=== PATIENT | male | born 1935 | race Caucasian/White ===

== ENCOUNTER 2020-05-11 19:12 | Inpatient (IN) ==
--- NOTE | 2020-05-11 19:31 | ERNOTE ---
Neuro HPI ER Record Date of Service: 05/11/20 Presenting Symptoms: weakness, difficulty standing Time Seen by Provider: 05/11/20 19:15 Source: patient Exam Limitations: no limitations Immunizations: IMMUNIZATION HX Immunizations Up to Date Yes History of Influenza Vaccine No Hx Pneumococcal Vaccination No Allergies/Adverse Reactions: Allergies Allergy/AdvReac Type Severity Reaction Status Date / Time No Known Allergies Allergy Verified 11/25/19 14:00 Home Medications: HOME MEDICATIONS atenolol 50 mg tablet 100 mg PO QHS #180 tab 08/22/19 [Last Taken Unknown] metformin 1,000 mg tablet,extended release 24hr 1,000 mg PO QHS #90 tab 09/03/19 [Last Taken Unknown] isosorbide mononitrate 60 mg tablet,extended release 24 hr 60 mg PO DAILY #90 tab 02/21/20 [Last Taken Unknown] lisinopril 20 mg tablet 20 mg PO QAM #90 tab 03/24/20 [Last Taken Unknown] Insulin Glargine,Hum.rec.anlog [Lantus U-100 Insulin] 50 units SQ QAM 05/11/20 [Last Taken Unknown] - Pain Score Pain Score #1 Pain Score: 0 - History of Present Illness Narrative: The patient is a 84 year old male who presents for right sided weakness which has been present since May 09 evening. There are associated symptoms of difficulty with swallowing. The patient denies pain. There are no alleviating factors. There are no aggravating factors. Previous treatments have included: none. The past medical history includes: anemia, colon ca, DM, HTN and PUD. The social history is positive for former smoker. The patient has had no known ill contacts. Patient reports he noticed weakness to right arm and leg which has progressed since onset. Patient states yesterday he noticed some difficulty with swallowing. Patient states he had similar issues in the past but they resolved on their own. Review of Systems - Review of Systems Constitutional: Present: no symptoms reported. Absent: recent illness, fever, fatigue EYE: Present: no symptoms reported ENT: Present: no symptoms reported. Absent: ear pain, nasal drainage, sore t hroat Respiratory: Present: no symptoms reported. Absent: shortness of breath, cough Cardiology: Present: no symptoms reported. Absent: chest pain Gastrointestinal/Abdominal: Present: no symptoms reported. Absent: nausea, vomiting, diarrhea Genitourinary: Present: no symptoms reported. Absent: dysuria Musculoskeletal: Present: no symptoms reported Skin: Present: no symptoms reported. Absent: rash Neurological: Present: weakness All Other Systems: All systems neg except as marked Medical History (Last Reviewed 05/11/20 @ 19:20 by GRACIELA Padilla) Peptic ulcer (Chronic) Onset Date: ~1979 Hypertension (Chronic) Onset Date: Unknown Diabetes (Chronic) Onset Date: Unknown Colon neoplasm (Chronic) Onset Date: ~12/14/11 history of-Malignant; Infiltrating adenocarcinoma T3 N1b colon carcinoma Anemia (Chronic) Onset Date: Unknown Surgical History: Surgical History (Last Reviewed 05/11/20 @ 19:20 by GRACIELA Padilla) H/O esophagogastroduodenoscopy (Resolved) Onset Date: ~12/14/11 With Biopsy; also 08/02/13. [place]- '12 CLOtest negative. '13 CLOtest negative H/O elbow surgery (Resolved) Onset Date: Unknown right H/O colonoscopy (Resolved) Onset Date: ~12/14/11 With Biopsy; Also 01/09/13 and 04/27/16. [place] - '12 tubular adenoma with conner grade sysplasia, infiltrating adenocarcinoma. '13 villous adenoma with low grade dysplasia. Recheck in 3 years. '16 hyperplasic polyp. Recheck 3 years. H/O colectomy (Resolved) Onset Date: ~01/18/12 bagan - sigmoid- adenocarcinoma of colon, moderately differentiated. 2 regional lymph nodes with metastatic adenocarcinoma out of 17 total Family History: Family History (Last Reviewed 05/11/20 @ 19:20 by GRACIELA Padilla) Father , age 63 Heart disease Mother , age 72 Diabetes Social History: (Last Reviewed 05/11/20 @ 19:20 by GRACIELA Padilla) Social History: adopted: No Marital status: household members: spouse Highest education level completed: high school graduate Service: Yes Tobacco: Smoking Status: Former smoker Alcohol: alcohol intake: current alcohol intake frequency: holiday/special occasion Dietary Habits: caffeine: Yes Physical Exam - Physical Exam General Appearance: Present: wd/wn, alert, moderate distress Head Exam: Present: normal inspection, no evidence of injury Eye Exam: Normal inspection: bilateral, PERRL: bilateral, EOMI: bilateral Ears, Nose, Throat: Present: other - left facial droop, mild deviation to tongue to left, mild droop to left eye Neck: Present: normal inspection Respiratory: Present: no respiratory distress, normal breath sounds, no accessory muscle use, lungs clear Cardiovascular/Chest: Present: regular rate, rhythm, no murmur Peripheral Pulses: N=norm/S=strong/W=weak/B=bound/A=absent: Radial (R): Normal Gastrointestinal/Abdominal: Present: normal bowel sounds, nontender, nondistended, soft, no organomegaly Neurological Exam: Present: alert, oriented, normal mood/affect, motor weakness - right arm and leg Laura Coma Scale - Assess Eye Opening: Spontaneous Motor: Obeys Commands Verbal: Oriented - Total Coma Scale Total: 15 Initial Stroke Assessment - NIH Stroke Scale Level of Consciousness: Alert LOC Questions (Year and Age): Answers neither correctly LOC Commands (open/close eyes/fist): Performs both correctly Lateral Gaze Paresis: None Visual Field Loss: No visual loss Facial Palsy: Minor paralysis Right Arm Motor (10 sec hold): Drift, effort made Left Arm Motor (10 sec hold): No drift Right Leg Motor (5 sec hold): No movement Left Leg Motor (5 sec hold): No drift Limb Ataxia (finger/nose heel/price): Present in 1 limb If present, ataxia in:: Right arm Sensory Loss (pinprick arms/legs/face): Mild, aware yet dulled Language Aphasia (description/naming/reading): No aphasia; normal Dysarthria (speech clarity): Slurring, intelligeble Neglect Inattention (visual/tactile/auditory/spatial/person): No neglect Initial Stroke Scale Score:: 12 Stroke Inclusion/Exclusion Cri - Inclusion Questions: Yes Onset of symptoms <3 1/2 hours of admission to ETC: No - B Exclusion (Must answwer No to meet): Time of onset greater then 3.5 hours. - Exclusion Questions: Major symptoms rapidly improving: No Seizure at onset of stroke: No SBP>185; DBP>110 at time treatment is to begin: No Patient received Heparin or Coumadin within 48 hours: No Patient has elevated PTT or Protime/INR: No Stroke, head injury, major surgery, serious trauma in 3 mon.: No Previous intracranial hemmorhage: No Recent DE: No Known AV malformation or aneurysm: No Blood glucose <50mg/dl or >400mg/dl: No NIHSS Score <4 or >22 performed by physician: No - Total NIHSS Score Score:: 12 Progress - Date and Time Seen: Date and Time: 05/11/20 19:28 Discussed with patient that I am concerned that he may have had a stroke but due to onset of symptoms that began yesterday he is outside of the treatment window. Will proceed with CT imaging and lab evaluation. Patient states that he noticed weakness to right side the evening of May 09 following the fireworks but then felt that symptoms significantly worsen yesterday. 05/11/20 20:17 Results of imaging and lab testing discussed with patient and at bedside. Discussed options with patient and regarding neurologic eval at [facility] versus hospital admission and MRI follow-up due to duration since onset of symptoms. After joint discussion patient decides to stay at hospital for admission with further evaluation with MRI testing as well as speech therapy evaluation and physical therapy eval. Case was discussed with Dr. Mar and will admit patient for acute admission CVA. Patient will be kept n.p.o. due to concern for aspiration until speech eval completed. - Results and Orders Patient's Lab Results:: I have reviewed the patient's lab results. - Vital Signs Patient's Vital Signs:: I have reviewed the patient's vital signs. - EKG EKG #1 EKG: NSR EKG read: Reviewed by me - X-Ray X-Ray #1 X-Ray: chest Interpretation: Reviewed by me X-ray Comments: IMPRESSION: No acute cardiopulmonary process. Electronically signed by Amelie Finney D.O.. - CT/Ultrasound CT/Ultrasound Narrative: Impression: No acute intracranial process. Cerebral volume loss. Chronic small vessel ischemic disease. If there is persistent concern, an MRI of the brain should be obtained. Electronically signed by Amelie Finney D.O.. - Progress/Reassessment Progress:: Unchanged Departure Clinical Impression: CVA (cerebral vascular accident) Qualifiers: CVA mechanism: unspecified Qualified Code(s): I63.9 - Cerebral infarction, unspecified - Departure Disposition: Still a patient Condition: Fair Referrals: Judi Carcamo MD [Primary Care Provider] -
[2020-05-11 19:37] LABS: Hematocrit 42.7 % (42.0-52.0); Hemoglobin 14.5 gm/dL (13.5-18.0); Mean Cell Volume 93.8 fl (78-100); Mean Corpuscular Hemoglobin 31.9 pg (27-31); Mean Platelet Volume 9.8 fl (8-11.3); Neutrophil # 5.6 K/mm3 (1.3-6.0); Neutrophil % 65.9 % (42-75.0); Platelet Count 181 K/mm3 (150-450); Red Blood Count 4.55 M/mm3 (4.7-6.0); Red Cell Distribution Width 12.5 % (11.5-14.0); White Blood Count 8.4 K/mm3 (4.0-10.5)
[2020-05-11 19:47] LABS: Prothrombin Time (Patient) 10.1 Seconds (9.1-10.7)
[2020-05-11 19:50] LABS: Albumin * 3.6 gm/dl (3.4-5.0); Anion Gap 11.8 mmol/L (6.8-13.8); BUN/Creatinine Ratio 19.6 (9.0-21.6); Bilirubin, Total 0.7 mg/dL (0.0-1.1); Ca. Corrected For Albumin 8.8 mg/dL (8.4-10.2); Calcium * 8.8 mg/dL (7.9-10.9); INR 1.02 INR (0.92-1.08); Partial Thrombolplastin Time 23.1 Seconds (24-32); Potassium 3.8 mmol/L (3.4-4.6); Total Protein 7.1 gm/dL (6.2-8.2)
[2020-05-11] MEDS: DEXTROSE 5%-0.5 NORMAL SALINE 1,000 ML IV PRN (21:05)
[2020-05-12 05:41] LABS: Urine Bilirubin Negative (NEGATIVE); Urine Ketone Negative (NEGATIVE); Urine Protein 30 mg/dL (NEGATIVE); Urine Specific Gravity 1.025 SP.GR. (1.005-1.030); Urine Urobilinogen Normal (NORMAL)
[2020-05-12 05:56] LABS: Urine Appearance Cloudy (CLEAR); Urine Blood 5 /ul (NEGATIVE); Urine Color Yellow; Urine Nitrite Positive (NEGATIVE)
[2020-05-12 05:57] LABS: Urine Bacteria 4+; Urine RBC TRACE /hpf (0-5); Urine WBC >50 /hpf (0-5)
[2020-05-12] MEDS: DEXTROSE 5%-0.5 NORMAL SALINE 1,000 ML IV PRN (07:54)
[2020-05-12] MEDS ORDERED: CIPROFLOXACIN IN 5 % DEXTROSE 400 MG/200 ML BAG IV SCH (09:00)
--- NOTE | 2020-05-12 09:00 | HP ---
Chief Complaint - Chief Complaint Date of Service: 05/12/20 Time of Service: 08:17 Chief Complaint: weakness History of Present Illness: Raúl Dumont is an 84-year-old white male with past medical history significant for hypertension, mild cognitive impairment, diabetes mellitus type 2, history of infiltrating carcinoma of the colon, peptic ulcer disease, who was admitted on 05/11/2020 for right-sided weakness. The patient says that he was watching the fireworks on May 09 and went home and slept. When he woke up and as he was going down the stairs she noticed weakness of his right upper extremity and tingling sensation. As he w going down further he noticed someas right lower extremity weakness. He denies any problems with speech and swallowing. As the days progressed he noticed also progression of his weakness and so he went to our emergency room. His EKG showed normal sinus rhythm, chest x-ray showed no acute cardiopulmonary findings, head CT scan showed no acute intracranial process, cerebral volume loss. Chronic small vessel ischemic disease. The patient was admitted and speech therapy was consulted. He also had an MRI this morning. His urinalyisis showed UTI. . 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 [place]- ' CLOtest negative. '13 CLOtest negative H/O elbow surgery (Resolved) Onset Date: Unknown right H/O colonoscopy (Resolved) Onset Date: ~12/14/11 With Biopsy; Also 01/09/13 and 04/27/16. Rachel - ' tubular adenoma with conner grade sysplasia, infiltrating adenocarcinoma. ' villous adenoma with low grade dysplasia. Recheck in 3 years. ' hyperplasic polyp. Recheck 3 years. H/O colectomy (Resolved) Onset Date: ~01/18/12 bagan - sigmoid- adenocarcinoma of colon, moderately differentiated. 2 regional lymph nodes with metastatic adenocarcinoma out of 17 total Family History: Family History (Last Reviewed 05/11/20 @ 19:25 by Kaelyn Dyson RN) Father , age 63 Heart disease Mother , age 72 Diabetes Social History: (Last Reviewed 05/11/20 @ 19:25 by Kaelyn Dyson RN) Social History: adopted: No Marital status: household members: spouse Highest education level completed: high school graduate Service: Yes Tobacco: Smoking Status: Former smoker Alcohol: alcohol intake: current alcohol intake frequency: holiday/special occasion Dietary Habits: caffeine: Yes Review Of Systems (GEN) - Review of Systems Generalized/Overall Review: Present: Weakness. Absent: Chills, Fever EENTM: Absent: Blurred Vision Respiratory: Absent: Cough, Shortness of Breath, Wheezing Cardiac: Absent: Chest Pain, Edema, Palpitations, Syncope Abdominal: Absent: Nausea, Vomiting, Abdominal Pain Genitourinary: Present: Retention. Absent: Urgency, Frequency Musculoskeletal: Absent: Joint Pain, Back Pain Neurological: Present: Tingling, Weakness. Absent: Headache Skin: Absent: Lesions, Rash Endocrine: Absent: Intolerance to Cold, Intolerance to Heat Misc: All systems neg except as marked Immunizations: IMMUNIZATION HX Immunizations Up to Date Yes History of Influenza Vaccine Yes Hx Pneumococcal Vaccination Yes Allergies/Adverse Reactions: Allergies Allergy/AdvReac Type Severity Reaction Status Date / Time No Known Allergies Allergy Verified 11/25/19 14:00 Home Medications: HOME MEDICATIONS atenolol 50 mg tablet 100 mg PO QHS #180 tab 08/22/19 [Last Taken Unknown] metformin 1,000 mg tablet,extended release 24hr 1,000 mg PO QHS #90 tab 09/03/19 [Last Taken Unknown] isosorbide mononitrate 60 mg tablet,extended release 24 hr 60 mg PO DAILY #90 tab 02/21/20 [Last Taken Unknown] lisinopril 20 mg tablet 20 mg PO QAM #90 tab 03/24/20 [Last Taken Unknown] Insulin Glargine,Hum.rec.anlog [Lantus U-100 Insulin] 50 units SQ QAM 05/11/20 [Last Taken Unknown] Exam - Exam Vital Signs: Vital Signs - Last Taken Temp 36.6 C 05/12/20 06:46 Pulse 75 05/12/20 06:46 Resp 20 05/12/20 06:46 BP 175/91 H 05/12/20 06:46 Pulse Ox 97 05/12/20 06:46 Constitutional: Present: Alert, Oriented x3, Cooperative, Elderly, Thin and frail ENT Exam: Present: hearing grossly normal Eye Exam: bilateral eye: normal inspection, PERRL, EOMI - Sluggishly reactive Neck: Present: supple Respiratory: Present: decreased breath sounds, No rales, No wheezing Cardiovascular/Chest: Present: regular rate, rhythm, no JVD, no murmur Abdomen: Present: Normal bowel sounds, soft, nontender, nondistended Extremity: Present: no pedal edema, no calf tenderness Neurologic: Present: marbleizing machine tender II-XII nml as tested - Grossly intact except for mild facial droop, oriented x 3, facial droop, motor weakness - Right upper extremity weakness, right lower extremity weakness, other - No gross dysarthria Diagnostic Studies: Abnormal Lab Results 05/11/20 05/11/20 05/11/20 Range/Units 19:32 19:32 19:32 RBC 4.55 L (4.7-6.0) M/mm3 MCH 31.9 H (27-31) pg Immature Gran % (Auto) 0.50 H (0.001-0.429) % Immature Gran # (Auto) 0.04 H (0.000-0.0310) K/mm3 ESR 11 H (0-10) mm/hr PTT (Keisha) 23.1 L (24-32) Seconds Random Glucose (70-110) mg/dL Urine Protein (NEGATIVE) mg/dL Urine Glucose (UA) (NEGATIVE) mg/dL Urine Blood (NEGATIVE) /ul Urine Nitrate (NEGATIVE) Ur Leukocyte Esterase (NEGATIVE) /ul Urine WBC (0-5) /hpf Urine Bacteria (NONE) 05/11/20 05/12/20 Range/Units 19:32 05:20 RBC (4.7-6.0) M/mm3 MCH (27-31) pg Immature Gran % (Auto) (0.001-0.429) % Immature Gran # (Auto) (0.000-0.0310) K/mm3 ESR (0-10) mm/hr PTT (Henry) (24-32) Seconds Random Glucose 143 H (70-110) mg/dL Urine Protein 30 H (NEGATIVE) mg/dL Urine Glucose (UA) 250 H (NEGATIVE) mg/dL Urine Blood 5 H (NEGATIVE) /ul Urine Nitrate Positive H (NEGATIVE) Ur Leukocyte Esterase 100 H (NEGATIVE) /ul Urine WBC >50 H (0-5) /hpf Urine Bacteria 4+ H (NONE) Laboratory Results WBC 8.4 K/mm3 (4.0-10.5) 05/11/20 19:32 RBC 4.55 M/mm3 (4.7-6.0) L 05/11/20 19:32 Hgb 14.5 gm/dL (13.5-18.0) 05/11/20 19:32 Hct 42.7 % (42.0-52.0) 05/11/20 19:32 MCV 93.8 fl (78-100) 05/11/20 19:32 MCH 31.9 pg (27-31) H 05/11/20 19:32 MCHC 34.0 g/dl (32-36) 05/11/20 19:32 RDW 12.5 % (11.5-14.0) 05/11/20 19:32 Plt Count 181 K/mm3 (150-450) 05/11/20 19:32 MPV 9.8 fl (8-11.3) 05/11/20 19:32 Immature Gran % (Auto) 0.50 % (0.001-0.429) H 05/11/20 19:32 Immature Gran # (Auto) 0.04 K/mm3 (0.000-0.0310) H 05/11/20 19:32 Neutrophils % 65.9 % (42-75.0) 05/11/20 19:32 Lymphocytes % 25.1 % (20-51) 05/11/20 19:32 Monocytes % 7.2 % (0.0-9) 05/11/20 19:32 Eosinophils % 1.1 % (0.0-3.0) 05/11/20 19:32 Basophils % 0.2 % (0.0-1.0) 05/11/20 19:32 Nucleated RBC % 0.0 k/mm3 (0-1) 05/11/20 19:32 Neutrophils # 5.6 K/mm3 (1.3-6.0) 05/11/20 19:32 Lymphocytes # 2.12 k/mm3 (1.5-3.5) 05/11/20 19:32 Monocytes # 0.6 k/mm3 (0.0-1.0) 05/11/20 19:32 Eosinophils # 0.1 k/mm3 (0.0-0.7) 05/11/20 19:32 Absolute Basophils 0.0 k/mm3 (0.0-0.1) 05/11/20 19:32 ESR 11 mm/hr (0-10) H 05/11/20 19:32 PT 10.1 Seconds (9.1-10.7) 05/11/20 19:32 INR (Anticoag Therapy) 1.02 INR (0.92-1.08) 05/11/20 19:32 PTT (Keisha) 23.1 Seconds (24-32) L 05/11/20 19:32 Sodium 140 mmol/L (132-142) 05/11/20 19:32 Plasma Sodium 141 mmol/L (130-142) 05/11/20 19:32 Potassium 3.8 mmol/L (3.4-4.6) 05/11/20 19:32 Chloride 106 mmol/L (97-106) 05/11/20 19:32 Carbon Dioxide 26.0 mmol/L (24-32.6) 05/11/20 19:32 Anion Gap 11.8 mmol/L (6.8-13.8) 05/11/20 19:32 BUN 21 mg/dL (6-23) 05/11/20 19:32 Creatinine 1.07 mg/dL (0.4-1.4) 05/11/20 19:32 Est GFR (Non-Af Amer) 70 mL/min (60-130) 05/11/20 19:32 BUN/Creatinine Ratio 19.6 (9.0-21.6) 05/11/20 19:32 Random Glucose 143 mg/dL (70-110) H 05/11/20 19:32 Calcium 8.8 mg/dL (7.9-10.9) 05/11/20 19:32 Calcium Adj for Albumin 8.8 mg/dL (8.4-10.2) 05/11/20 19:32 Total Bilirubin 0.7 mg/dL (0.0-1.1) 05/11/20 19:32 AST 15 U/L (0-48) 05/11/20 19:32 ALT 22 U/L (19-67) 05/11/20 19:32 Alkaline Phosphatase 60 U/L (50-170) 05/11/20 19:32 Total Protein 7.1 gm/dL (6.2-8.2) 05/11/20 19:32 Albumin 3.6 gm/dl (3.4-5.0) 05/11/20 19:32 Urine Color Yellow 05/12/20 05:20 Urine Appearance Cloudy (CLEAR) 05/12/20 05:20 Urine pH 7.0 pH (5.0-7.0) 05/12/20 05:20 Ur Specific Sallis 1.025 SP.GR. (1.005-1.030) 05/12/20 05:20 Urine Protein 30 mg/dL (NEGATIVE) H 05/12/20 05:20 Urine Glucose (UA) 250 mg/dL (NEGATIVE) H 05/12/20 05:20 Urine Ketones Negative mg/dL (NEGATIVE) 05/12/20 05:20 Urine Blood 5 /ul (NEGATIVE) H 05/12/20 05:20 Urine Nitrate Positive (NEGATIVE) H 05/12/20 05:20 Urine Bilirubin Negative mg/dl (NEGATIVE) 05/12/20 05:20 Prot Sulfosalicylic Acd 1+ mg/dL (0) 05/12/20 05:20 Urine Urobilinogen Normal EU/dl (NORMAL) 05/12/20 05:20 Ur Leukocyte Esterase 100 /ul (NEGATIVE) H 05/12/20 05:20 Urine RBC Trace /hpf (0-5) 05/12/20 05:20 Urine WBC >50 /hpf (0-5) H 05/12/20 05:20 Ur Epithelial Cells Trace /hpf (0-5) 05/12/20 05:20 Urine Bacteria 4+ (NONE) H 05/12/20 05:20 Urine Culture Comments Culture to follow 05/12/20 05:20 Assessment/Plan - Narrative Narrative: Raúl Dumont is an 84-year-old white male who was admitted for right hemiparesis which started on the evening of May 09. 2 days later he noticed progression of his weakness and so he went to our emergency room. His EKG and chest x-ray were unremarkable. His head CT scan also showed no acute intracranial process or bleed. His MRI was done earlier this morning and official reading is pending. He likely has an acute to subacute CVA/TIA and will refer patient to PT, OT, speech therapy. We will restart medication after bedside swallowing evaluation by nurse.. We will start him on aspirin p.o. daily and will do carotid ultrasound, echocardiogram with bubble study and also change him to telemetry. We will likely do a 48-hour Holter monitor on discharge just in case he has a PAFib that triggered an embolus. . We will add ESR, TSH to his blood work. Will start Cipro for his UTI. - Assessment/Plan (1) CVA (cerebral vascular accident) Problem: Acute Qualifiers: CVA mechanism: unspecified Qualified Code(s): I63.9 - Cerebral infarction, unspecified (2) UTI (urinary tract infection) Problem: Acute Qualifiers: Urinary tract infection type: acute cystitis Hematuria presence: with hematuria Qualified Code(s): N30.01 - Acute cystitis with hematuria (3) HTN (hypertension) Problem: Chronic Qualifiers: Hypertension type: essential hypertension Qualified Code(s): I10 - Essential (primary) hypertension (4) Diabetes Problem: Chronic Qualifiers: Diabetes mellitus type: type 2 (5) History of colon cancer Assessment: Status post colectomy Problem: Chronic (6) Mild cognitive impairment Problem: Chronic
[2020-05-12] MEDS: ISOSORBIDE MONONITRATE 60 MG TAB.SR.24H PO SCH (09:28)
[2020-05-12] MEDS: CIPROFLOXACIN HCL 500 MG TABLET PO SCH ×2 (09:28→20:31)
[2020-05-12] MEDS: ASPIRIN 325 MG TABLET.DR PO SCH (09:28)
[2020-05-12] MEDS: NORMAL SALINE 1,000 ML IV PRN (17:06)
[2020-05-12] MEDS: FINASTERIDE 5 MG TABLET PO SCH (17:08)
[2020-05-12] MEDS: ENOXAPARIN SODIUM 40 MG/0.4 ML SYRG SC SCH (17:09)
[2020-05-12] MEDS: TAMSULOSIN HCL 0.4 MG CAP.SR.24H PO SCH (17:09)
[2020-05-12] MEDS: INSULIN LISPRO 100 UNITS/ML VIAL SC SCH (17:13)
[2020-05-12] MEDS: ATENOLOL 100 MG TABLET PO SCH (20:30)
[2020-05-12] MEDS ORDERED: ROSUVASTATIN CALCIUM 10 MG TABLET PO SCH (21:00)
[2020-05-13] MEDS: NORMAL SALINE 1,000 ML IV PRN (03:02)
[2020-05-13 06:58] LABS: Hematocrit 38.4 % (42.0-52.0); Hemoglobin 13.2 gm/dL (13.5-18.0); Mean Cell Volume 92.5 fl (78-100); Mean Corpuscular Hemoglobin 31.8 pg (27-31); Mean Corpuscular Hgb Conc 34.4 g/dl (32-36); Mean Platelet Volume 9.8 fl (8-11.3); Neutrophil # 4.6 K/mm3 (1.3-6.0); Neutrophil % 69.2 % (42-75.0); Platelet Count 142 K/mm3 (150-450); Red Blood Count 4.15 M/mm3 (4.7-6.0); White Blood Count 6.7 K/mm3 (4.0-10.5)
[2020-05-13 07:06] LABS: Anion Gap 9.9 mmol/L (6.8-13.8); BUN/Creatinine Ratio 13.8 (9.0-21.6); Calcium * 8.3 mg/dL (7.9-10.9); Estimated Creat Clear 78.1; Potassium 3.9 mmol/L (3.4-4.6)
[2020-05-13] MEDS: INSULIN LISPRO 100 UNITS/ML VIAL SC SCH ×3 (07:42→17:11)
[2020-05-13] MEDS: ISOSORBIDE MONONITRATE 60 MG TAB.SR.24H PO SCH ×2 (07:45→08:21)
[2020-05-13] MEDS: LISINOPRIL 20 MG TABLET PO SCH ×2 (07:46→08:21)
--- NOTE | 2020-05-13 08:08 | PN ---
Subjective - Date and Time Seen Date: 05/13/20 Time: 08:07 Subjective Narrative: Raúl says he is feeling stronger this morning. His ECHO showed EF 56 %, positive diatolic dysfunction, mild , negative bubble study. His CUS showed 16-49% JONNY. His ESR was slightly elevated but repeat was normal. His MRI did not show any acute infarct. Clinically though he presented with an acute CVA picture. Possible explanations are patient could still have had a TIA or a nick r stroke with return of blood flow in time to cause no permanent damage leading to permanent ischemia or infarct versus a peripheral etiology cervical spine instead of MUCK BOSS etiology. Another cause could be a toxic/metabolic etiology from UTI presenting atypically with MUCK BOSS neurologic presentation. Neurologically, he is stronger this morning on his right side compared to yesterday. He is awake alert oriented x3 and does not have any dysarthria or aphasia. His blood pressure has been running high which could be due acute neurologic process versus distention of his bladder from urinary retention. Objective - Review of Systems Generalized/Overall Review: Reports: Weakness. Denies: Chills, Fever EENTM: Denies: Blurred Vision Respiratory: Denies: Cough, Shortness of Breath, Orthopnea Cardiac: Denies: Chest Pain, Edema, Palpitations Abdominal: Denies: Nausea, Vomiting Genitourinary Symptoms: Reports: Retention. Denies: Burning, Urgency, Frequency Musculoskeletal Complaints: Denies: Joint Pain, Back Pain Neurological: Reports: Weakness. Denies: Headache Skin: Denies: Lesions, Rash Misc: All systems neg except as marked - Vitals Vitals: Last Vital Signs Temp 37.0 C 05/13/20 06:53 Pulse 67 05/13/20 07:46 Resp 16 05/13/20 06:53 BP 171/81 H 05/13/20 07:46 Pulse Ox 97 05/13/20 06:53 - Abnormal Lab Findings Abnormal Lab Findings: Abnormal Lab Results 05/13/20 05/13/20 Range/Units 06:45 06:45 RBC 4.15 L (4.7-6.0) M/mm3 Hgb 13.2 L (13.5-18.0) gm/dL Hct 38.4 L (42.0-52.0) % MCH 31.8 H (27-31) pg Plt Count 142 L (150-450) K/mm3 Lymphocytes # 1.34 L (1.5-3.5) k/mm3 Random Glucose 194 H D (70-110) mg/dL - Exam Constitutional: Present: Alert, Oriented x3, Cooperative, Elderly ENT Exam: Present: hearing grossly normal Neck: Present: supple Respiratory: Present: decreased breath sounds, No rales, No wheezing Cardiovascular/Chest: Present: regular rate, rhythm, no JVD, systolic murmur Abdomen: Present: Normal bowel sounds, soft, nontender, no masses Extremity: Present: normal inspection, calf tenderness Neurologic: Present: patroller II-XII nml as tested - right nasolabial subtlely shallow, motor weakness - Grade 4+/5, right UE/LE Cauti Physician Documentation - Urinary Catheter Management Urethral (Maldonado) Date of Insertion: 05/13/20 Time of Insertion: 08:15 Assessment/Plan Plan Narrative: We will do a cervical spine x-ray, renal ultrasound, indwelling Maldonado catheter. We will add PSA to his labs this morning. We had started him on Tamsulosin and Finasteride yesterday. He continued to need stright caath x 2 last night per nurses notes. We will likely need a urology consult. He will continue with PT\ OT and discharge plans in the morning pending results of workup. - Problems/Diagnosis (1) CVA (cerebral vascular accident) Problem: Acute Qualifiers: CVA mechanism: unspecified Qualified Code(s): I63.9 - Cerebral infarction, unspecified (2) UTI (urinary tract infection) Problem: Acute Qualifiers: Urinary tract infection type: acute cystitis Hematuria presence: with hematuria Qualified Code(s): N30.01 - Acute cystitis with hematuria (3) Urinary retention Problem: Acute (4) Carotid artery disease Problem: Acute Qualifiers: Carotid artery disease type: stenosis Laterality: bilateral Qualified Code(s): I65.23 - Occlusion and stenosis of bilateral carotid arteries (5) HTN (hypertension) Problem: Chronic Qualifiers: Hypertension type: essential hypertension Qualified Code(s): I10 - Essential (primary) hypertension (6) Diabetes Problem: Chronic Qualifiers: Diabetes mellitus type: type 2 (7) History of colon cancer Problem: Chronic (8) Mild cognitive impairment Problem: Chronic (9) Aortic stenosis Problem: Acute Qualifiers: Cardiac valve disease etiology: nonrheumatic Qualified Code(s): I35.0 - Nonrheumatic aortic (valve) stenosis
[2020-05-13] MEDS: ASPIRIN 325 MG TABLET.DR PO SCH (08:20)
[2020-05-13] MEDS: FINASTERIDE 5 MG TABLET PO SCH (08:21)
[2020-05-13] MEDS: CIPROFLOXACIN HCL 500 MG TABLET PO SCH ×2 (08:21→21:23)
[2020-05-13] MEDS: INSULIN GLARGINE,HUM.REC.ANLOG 100 UNITS/ML VIAL SC SCH (08:21)
[2020-05-13] MEDS: ENOXAPARIN SODIUM 40 MG/0.4 ML SYRG SC SCH (17:10)
[2020-05-13] MEDS: TAMSULOSIN HCL 0.4 MG CAP.SR.24H PO SCH (17:10)
[2020-05-13] MEDS ORDERED: ACETAMINOPHEN 325 MG TABLET PO PRN (20:30)
[2020-05-13] MEDS: ROSUVASTATIN CALCIUM 20 MG TABLET PO SCH (21:23)
[2020-05-13] MEDS: ATENOLOL 100 MG TABLET PO SCH (21:24)
[2020-05-14] MEDS: INSULIN LISPRO 100 UNITS/ML VIAL SC SCH ×3 (06:47→16:52)
--- NOTE | 2020-05-14 08:23 | PN ---
Subjective - Date and Time Seen Date: 05/14/20 Time: 08:14 Subjective Narrative: Raúl says he is feeling better. He is eating his breakfast using his RUE. He is for possible discharge tomorrow to NH for further PT/OT. Objective - Review of Systems Generalized/Overall Review: Denies: Chills, Fever EENTM: Denies: Blurred Vision Respiratory: Denies: Cough, Shortness of Breath, Orthopnea Cardiac: Denies: Chest Pain, Palpitations Abdominal: Denies: Nausea, Vomiting, Abdominal Pain Genitourinary Symptoms: Denies: Urgency, Frequency Musculoskeletal Complaints: Denies: Joint Pain, Back Pain Neurological: Denies: Headache Skin: Denies: Lesions, Rash Misc: All systems neg except as marked - Vitals Vitals: Last Vital Signs Temp 36.7 C 05/14/20 06:36 Pulse 65 05/14/20 06:54 Resp 16 05/14/20 06:36 BP 149/76 05/14/20 06:36 Pulse Ox 96 05/14/20 06:36 - Exam Constitutional: Present: Alert, Oriented x3, Cooperative, Elderly, Thin and frail ENT Exam: Present: hearing grossly normal Neck: Present: supple Cardiovascular/Chest: Present: regular rate, rhythm, no JVD, systolic murmur Abdomen: Present: Normal bowel sounds, soft, nontender, nondistended Extremity: Present: no pedal edema, no calf tenderness Neurologic: Present: 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 The family did not inpatient rehab at [facility]. Covid testing ordered. BP medication cut in half due to episode of low blood pressure yesterday. - Problems/Diagnosis (1) CVA (cerebral vascular accident) Problem: Acute Qualifiers: CVA mechanism: unspecified Qualified Code(s): I63.9 - Cerebral infarction, unspecified (2) UTI (urinary tract infection) Problem: Acute Qualifiers: Urinary tract infection type: acute cystitis Hematuria presence: with hematuria Qualified Code(s): N30.01 - Acute cystitis with hematuria (3) Urinary retention Problem: Acute (4) Carotid artery disease Problem: Acute Qualifiers: Carotid artery disease type: stenosis Laterality: bilateral Qualified Code(s): I65.23 - Occlusion and stenosis of bilateral carotid arteries (5) HTN (hypertension) Problem: Chronic Qualifiers: Hypertension type: essential hypertension Qualified Code(s): I10 - Essential (primary) hypertension (6) Diabetes Problem: Chronic Qualifiers: Diabetes mellitus type: type 2 (7) History of colon cancer Problem: Chronic (8) Mild cognitive impairment Problem: Chronic (9) Aortic stenosis Problem: Acute Qualifiers: Cardiac valve disease etiology: nonrheumatic Qualified Code(s): I35.0 - Nonrheumatic aortic (valve) stenosis
[2020-05-14] MEDS: CIPROFLOXACIN HCL 500 MG TABLET PO SCH ×2 (08:46→20:07)
[2020-05-14] MEDS: ISOSORBIDE MONONITRATE 60 MG TAB.SR.24H PO SCH (08:46)
[2020-05-14] MEDS: ASPIRIN 325 MG TABLET.DR PO SCH (08:46)
[2020-05-14] MEDS: INSULIN GLARGINE,HUM.REC.ANLOG 100 UNITS/ML VIAL SC SCH (08:47)
[2020-05-14] MEDS: FINASTERIDE 5 MG TABLET PO SCH (08:47)
[2020-05-14] MEDS: LISINOPRIL 10 MG TABLET PO SCH (08:52)
[2020-05-14] MEDS: ENOXAPARIN SODIUM 40 MG/0.4 ML SYRG SC SCH (16:51)
[2020-05-14] MEDS: TAMSULOSIN HCL 0.4 MG CAP.SR.24H PO SCH (17:27)
[2020-05-14] MEDS: ROSUVASTATIN CALCIUM 20 MG TABLET PO SCH (20:07)
[2020-05-14] MEDS ORDERED: ATENOLOL 50 MG TABLET PO SCH (21:00)
[2020-05-15] MEDS: INSULIN LISPRO 100 UNITS/ML VIAL SC SCH (07:48)
[2020-05-15] MEDS: FINASTERIDE 5 MG TABLET PO SCH (08:07)
[2020-05-15] MEDS: ASPIRIN 325 MG TABLET.DR PO SCH (08:07)
[2020-05-15] MEDS: CIPROFLOXACIN HCL 500 MG TABLET PO SCH (08:07)
[2020-05-15] MEDS: LISINOPRIL 10 MG TABLET PO SCH (08:11)
[2020-05-15] MEDS: ISOSORBIDE MONONITRATE 60 MG TAB.SR.24H PO SCH (08:11)
[2020-05-15] MEDS: INSULIN GLARGINE,HUM.REC.ANLOG 100 UNITS/ML VIAL SC SCH (08:13)
--- NOTE | 2020-05-15 08:29 | DS ---
(1) CVA (cerebral vascular accident) Problem: Acute Qualifiers: CVA mechanism: unspecified Qualified Code(s): I63.9 - Cerebral infarction, unspecified (2) UTI (urinary tract infection) Problem: Acute Qualifiers: Urinary tract infection type: acute cystitis Hematuria presence: with hematuria Qualified Code(s): N30.01 - Acute cystitis with hematuria (3) Urinary retention Problem: Acute (4) Carotid artery disease Problem: Acute Qualifiers: Carotid artery disease type: stenosis Laterality: bilateral Qualified Code(s): I65.23 - Occlusion and stenosis of bilateral carotid arteries (5) HTN (hypertension) Problem: Chronic Qualifiers: Hypertension type: essential hypertension Qualified Code(s): I10 - Essential (primary) hypertension (6) Diabetes Problem: Chronic Qualifiers: Diabetes mellitus type: type 2 (7) History of colon cancer Problem: Chronic (8) Mild cognitive impairment Problem: Chronic (9) Aortic stenosis Problem: Acute Qualifiers: Cardiac valve disease etiology: nonrheumatic Qualified Code(s): I35.0 - Nonrheumatic aortic (valve) stenosis Date of Discharge:: 05/15/20 Hospital Course: Raúl Dumont is an 84-year-old white male with past medical history significant for hypertension, mild cognitive impairment, diabetes mellitus type 2, history of infiltrating carcinoma of the colon, peptic ulcer disease, who was admitted on 05/11/2020 for right-sided weakness. The patient says that he was watching the fireworks on May 09 and went home and slept. When he woke up and as he was going down the stairs she noticed weakness of his right upper extremity and tingling sensation. As he w going down further he noticed someas right lower extremity weakness. He denies any problems with speech and swallowing. As the days progressed he noticed also progression of his weakness and so he went to our emergency room. His EKG showed normal sinus rhythm, chest x-ray showed no acute cardiopulmonary findings, head CT scan showed no acute intracranial process, cerebral volume loss. Chronic small vessel ischemic disease. The patient was admitted and speech therapy, PT/OT were consulted. His urinalyisis showed UTI. He was started on oral Cipro. His ECHO showed EF 56 %, positive diatolic dysfunction, mild , negative bubble study. His CUS showed 16-49% JONNY. His ESR was slightly elevated but repeat was normal. His MRI did not show any acute infarct. Clinically though he presented with an acute CVA picture. Possible explanations are patient could still have had a TIA or a minor stroke with return of blood flow in time to cause no permanent damage leading to permanent ischemia or infarct versus a peripheral etiology cervical spine instead of NEUROSURGEON etiology. Another cause could be a toxic/metabolic etiology from UTI presenting atypically with NEUROSURGEON neurologic presentation. Neurologically, he is stronger this morning on his right side compared to yesterday. He is awake alert oriented x3 and does not have any dysarthria or aphasia. His blood pressure started running high which likely due acute acute urinary retention more than acute neurologic process. Tamsulosin and finasteride were added. He needed straight garza caths x 4 and so we ended up with an indwelling garza cath. His BP medications were reduced in half. He then had episodes of low blood pressure and had a recurrence of transient RUE extremity weakness. Repeat Head CTS showed no acute changes from recent one or hemorrhage. We had started him on ASA and DVT prophylaxis- Lovenox. . He likely has transient focal ischemia with decreased BP resulting in low blood flow. He may benefit from a CTA or MRA. He needs to further PT/OT/SY in [place] prior to going home. His UCS showed no pathogen but his UA and urine specimen clinically showed UTI. I will continue with his Cipro and d/c after Monday. . He is day #4 and 1/2 of Cipro, tamsulosin day 4, finasteride day#3. This is day # 3 of his indwelling and will leave it in till Monday. We will do US of his bladder q 4 hours and straight cath if > 300 ml. He may need restarting his indwelling garza catheter and referral to Urology. Procedures Performed: none Results and Findings: Lab Pending Results 05/11/20 19:32: WBC 8.4, RBC 4.55 L, Hgb 14.5, Hct 42.7, MCV 93.8, MCH 31.9 H, MCHC 34.0, RDW 12.5, Plt Count 181, MPV 9.8, Immature Gran % (Auto) 0.50 H, Stefanie ture Gran # (Auto) 0.04 H, Neutrophils % 65.9, Lymphocytes % 25.1, Monocytes % 7.2, Eosinophils % 1.1, Basophils % 0.2, Nucleated RBC % 0.0, Neutrophils # 5.6, Lymphocytes # 2.12, Monocytes # 0.6, Eosinophils # 0.1, Absolute Basophils 0.0 05/11/20 19:32: ESR 11 H 05/11/20 19:32: PT 10.1, INR (Anticoag Therapy) 1.02, PTT (Keisha) 23.1 L 05/11/20 19:32: Sodium 140, Plasma Sodium 141, Potassium 3.8, Chloride 106, Carbon Dioxide 26.0, Anion Gap 11.8, BUN 21, Creatinine 1.07, Est GFR (Non-Af Amer) 70, BUN/Creatinine Ratio 19.6, Random Glucose 143 H, Calcium 8.8, Calcium Adj for Albumin 8.8, Total Bilirubin 0.7, AST 15, ALT 22, Alkaline Phosphatase 60, Total Protein 7.1, Albumin 3.6 05/12/20 05:20: Urine Color Yellow, Urine Appearance Cloudy, Urine pH 7.0, Ur Specific [place] 1.025, Urine Protein 30 H, Urine Glucose (UA) 250 H, Urine Ketones Negative, Urine Blood 5 H, Urine Nitrate Positive H, Urine Bilirubin Negative, Prot Sulfosalicylic Acd 1+, Urine Urobilinogen Normal, Ur Leukocyte Esterase 100 H, Urine RBC Trace, Urine WBC >50 H, Ur Epithelial Cells Trace, Urine Bacteria 4+ H, Urine Culture Comments Culture to follow 05/12/20 09:31: TSH 1.884 05/12/20 09:31: ESR 9 05/13/20 06:45: WBC 6.7 D, RBC 4.15 L, Hgb 13.2 L, Hct 38.4 L, MCV 92.5, MCH 31.8 H, MCHC 34.4, RDW 12.0, Plt Count 142 L, MPV 9.8, Immature Gran % (Auto) 0.40, Immature Gran # (Auto) 0.03, Neutrophils % 69.2, Lymphocytes % 20.1, Monocytes % 8.7, Eosinophils % 1.5, Basophils % 0.1, Nucleated RBC % 0.0, Neutrophils # 4.6, Lymphocytes # 1.34 L, Monocytes # 0.6, Eosinophils # 0.1, Absolute Basophils 0.0 05/13/20 06:45: Sodium 136, Plasma Sodium 138, Potassium 3.9, Chloride 106, Carbon Dioxide 24.0, Anion Gap 9.9, BUN 11, Creatinine 0.80, Est GFR (Non-Af Amer) 98 D, BUN/Creatinine Ratio 13.8, Random Glucose 194 H D, Calcium 8.3 05/13/20 06:45: Prostate Specific Ag 0.56 Discharge Location: [facility] Disposition: SNF Condition: Fair Level of Care: SNF Discharge Activity: Activity as tolerated Discharge Diet: Consistent carbs, Low salt Snf Therapy: Physical Therapy, Occupation Therapy, Speech Therapy Referrals: Judi Carcamo MD [Primary Care Provider] - Additional Patient Instructions (free text): Follow up with PCP in 2 weeks . D/c in dwelling agrza catheter on Monday. D/C Cipro on Monday. Prescriptions (Any new or edited meds): Aspirin [Aspirin Enteric Coated] 325 mg PO DAILY #30 tablet.dr Transmission Status: Pending to [facility] Ciprofloxacin HCl [Cipro] 500 mg PO BID #7 tab Transmission Status: Pending to [facility] Rosuvastatin Calcium [Crestor] 20 mg PO HS #30 tab Transmission Status: Pending to [facility] Tamsulosin HCl [Flomax] 0.4 mg PO DAILY@1800 #30 cap.sr.24h Transmission Status: Pending to [facility] Finasteride [Proscar] 5 mg PO DAILY #30 tab Transmission Status: Pending to [facility] Atenolol [Tenormin] 50 mg PO HS #30 tab Transmission Status: Pending to [facility] Acetaminophen [Tylenol] 650 mg PO Q6H PRN #30 tab PRN Reason: Mild Pain (Pain Scale 1-3) Transmission Status: Pending to [facility] Lisinopril [Zestril] 10 mg PO QAM #30 tab Transmission Status: Pending to [facility] Complete Home Medications List: Complete Home Medication List: metformin 1,000 mg tablet,extended release 24hr 1,000 mg PO QHS #90 tab 09/03/19 isosorbide mononitrate 60 mg tablet,extended release 24 hr 60 mg PO DAILY #90 tab 02/21/20 Insulin Glargine,Hum.rec.anlog [Lantus] 50 units SQ QAM 05/11/20 Acetaminophen [Tylenol] 650 mg PO Q6H PRN #30 tab 05/15/20 Aspirin [Aspirin Enteric Coated] 325 mg PO DAILY #30 tablet. 05/15/20 Atenolol [Tenormin] 50 mg PO HS #30 tab 05/15/20 Ciprofloxacin HCl [Cipro] 500 mg PO BID #7 tab 05/15/20 Finasteride [Proscar] 5 mg PO DAILY #30 tab 05/15/20 Lisinopril [Zestril] 10 mg PO QAM #30 tab 05/15/20 Rosuvastatin Calcium [Crestor] 20 mg PO HS #30 tab 05/15/20 Tamsulosin HCl [Flomax] 0.4 mg PO DAILY@1800 #30 cap.sr.24h 05/15/20 Forms: Patient Portal Registration
--- NOTE | 2020-05-15 10:10 | ECHO ---
This report is available in the EMR
[2020-05-15 10:11] VITALS: BP 145/68
== END 2020-05-15 10:38 | DRG 65 ==
LOC: ER 19:12 → MS 20:27
PROVIDERS: ADMIT Family Medicine; ATTEND Internal Medicine
DX: Z11.59 Encounter for screening for other viral diseases; G31.84 Mild cognitive impairment of uncertain or unknown etiology; Z85.038 Personal history of other malignant neoplasm of large intestine; K27.9 Peptic ulcer, site unspecified, unspecified as acute or chronic, without hemorrhage or perforation; I10 Essential (primary) hypertension; I11.9 Hypertensive heart disease without heart failure; E11.9 Type 2 diabetes mellitus without complications; R29.712 NIHSS score 12; G81.91 Hemiplegia, unspecified affecting right dominant side; I65.23 Occlusion and stenosis of bilateral carotid arteries; I35.0 Nonrheumatic aortic (valve) stenosis; I63.9 Cerebral infarction, unspecified; N30.01 Acute cystitis with hematuria; D64.9 Anemia, unspecified
CPT/HCPCS: 36415; 70450; 70553; 71010; 71045; 72040; 76770; 80048; 80053; 81001; 84153; 84443; 85025; 85610; 85652; 85730; 87086; 92610; 93005; 93306; 93880; 97110; 97112; 97116; 97161; 97165; 97535; 99285; A9576; C9803; U0001

== ENCOUNTER 2020-12-01 22:14 | Inpatient (IN) ==
[2020-12-01] MEDS ORDERED: NORMAL SALINE 1,000 ML IV ONE (22:25)
[2020-12-01 22:36] LABS: Hematocrit 36.4 % (42.0-52.0); Hemoglobin 11.7 gm/dL (13.5-18.0); Mean Cell Volume 88.6 fl (78-100); Mean Corpuscular Hemoglobin 28.5 pg (27-31); Mean Corpuscular Hgb Conc 32.1 g/dl (32-36); Mean Platelet Volume 9.6 fl (8-11.3); Neutrophil # 7.9 K/mm3 (1.3-6.0); Neutrophil % 75.6 % (42-75.0); Platelet Count 216 K/mm3 (150-450); Red Blood Count 4.11 M/mm3 (4.7-6.0); Red Cell Distribution Width 13.2 % (11.5-14.0); White Blood Count 10.4 K/mm3 (4.0-10.5)
--- NOTE | 2020-12-01 22:39 | ERNOTE ---
Neuro HPI ER Record Date of Service: 12/01/20 Presenting Symptoms: confusion Time Seen by Provider: 12/01/20 22:22 Source: family Exam Limitations: no limitations Immunizations: IMMUNIZATION HX Immunizations Up to Date Yes History of Influenza Vaccine Yes Hx Pneumococcal Vaccination Yes Allergies/Adverse Reactions: Allergies Allergy/AdvReac Type Severity Reaction Status Date / Time No Known Allergies Allergy Verified 09/23/20 13:14 Home Medications: HOME MEDICATIONS Acetaminophen [Tylenol] 650 mg PO Q6H PRN #30 tab 05/15/20 [Last Taken Unknown] blood sugar diagnostic See Rx Instructions .ROUTE .MEDSUPPLY #100 ea 06/08/20 [Last Taken Unknown] atorvastatin 40 mg tablet 40 mg PO HS 06/18/20 [Last Taken Unknown] isosorbide mononitrate 60 mg tablet,extended release 24 hr 60 mg PO DAILY #90 tab 08/19/20 [Last Taken Unknown] metformin 1,000 mg tablet,extended release 24hr 1,000 mg PO QHS #90 tab 08/24/20 [Last Taken Unknown] insulin glargine 100 unit/mL subcutaneous solution 45 unit SUBCUT QAM ml 09/23/20 [Last Taken Unknown] atenolol 50 mg tablet 50 mg PO HS #90 tab 10/19/20 [Last Taken Unknown] lisinopril 10 mg tablet 10 mg PO QAM #90 tab 10/19/20 [Last Taken Unknown] insulin syringe-needle U-100 1 mL 30 gauge x 1/2" See Rx Instructions .ROUTE .MEDSUPPLY #100 ea 10/23/20 [Last Taken Unknown] - History of Present Illness Narrative: 85-year-old male brought from home she left him at around 2:00 this afternoon he was slightly confused when she came back 3 to 4 hours later he was very confused and she wants to move the next couple hours from 7:32 round 9:30 and there was no change really seem to be more confused when asked the began medical problems he had a seizure diabetes and high blood pressure upon evaluation of his past medical history is much more extensive he said CVAs and has done something similar to this in the past In the ED the patient is alert awake but confused when asked with was going he thought he was seeing his grandchildren he has no auditory hallucinations his blood sugar was 189 repeated a second time 182 denies any chest pain shortness of breath difficulty breathing Also noted was weakness of the patient's right side upper and lower extremity Date (Duration): 12/01/20 Time (Timing): 14:30 Last Date Known Well: 12/01/20 Last Time Known Well: 14:30 Onset: gradual onset, continues in ER Severity: moderate Context: fall - 2 weeks ago - Character of Deficits New weakness: Present: other Altered sensation: Present: other Baseline Cognition: Present: alert but confused Associated Symptoms: Reports: confused Review of Systems - Review of Systems Constitutional: Present: no symptoms reported EYE: Present: no symptoms reported ENT: Present: no symptoms reported Respiratory: Present: no symptoms reported Cardiology: Present: syncope Gastrointestinal/Abdominal: Present: no symptoms reported Genitourinary: Present: no symptoms reported Musculoskeletal: Present: no symptoms reported Neurological: Present: no symptoms reported Endocrine: Present: no symptoms reported Hematologic/Lymphatic: Present: swollen glands All Other Systems: All systems neg except as marked Medical History (Last Reviewed 12/01/20 @ 22:30 by Mika Higginbotham MD) Peptic ulcer (Chronic) Onset Date: ~1979 Hypertension (Chronic) Onset Date: Unknown Diabetes (Chronic) Onset Date: Unknown Colon neoplasm (Chronic) Onset Date: ~12/14/11 history of-Malignant; Infiltrating adenocarcinoma T3 N1b colon carcinoma Anemia (Chronic) Onset Date: Unknown Surgical History: Surgical History (Last Reviewed 12/01/20 @ 22:30 by Mika Higginbotham MD) H/O esophagogastroduodenoscopy (Resolved) Onset Date: ~12/14/11 With Biopsy; also 08/02/13. Bagan- '12 CLOtest negative. '13 CLOtest negative H/O elbow surgery (Resolved) Onset Date: Unknown right H/O colonoscopy (Resolved) Onset Date: ~12/14/11 With Biopsy; Also 01/09/13 and 04/27/16. Bagan - '12 tubular adenoma with conner grade sysplasia, infiltrating adenocarcinoma. '13 villous adenoma with low grade dysplasia. Recheck in 3 years. '16 hyperplasic polyp. Recheck 3 years. H/O colectomy (Resolved) Onset Date: ~01/18/12 bagan - sigmoid- adenocarcinoma of colon, moderately differentiated. 2 regional lymph nodes with metastatic adenocarcinoma out of 17 total Family History: Family History (Last Reviewed 12/01/20 @ 22:26 by Brenda Tabor RN) Father , age 63 Heart disease Mother , age 72 Diabetes Social History: (Last Reviewed 12/01/20 @ 22:26 by Brenda Tabor RN) Social History: adopted: No Marital status: household members: spouse Highest level of school completed/degree received: high school graduate Service: Yes Tobacco: Smoking Status: Former smoker Alcohol: alcohol intake: current alcohol intake frequency: holiday/special occasion Dietary Habits: caffeine: Yes Physical Exam - Physical Exam General Appearance: Present: wd/wn, alert, no apparent distress Head Exam: Present: normal inspection, no evidence of injury Eye Exam: Normal inspection: bilateral, PERRL: bilateral, EOMI: bilateral Ears, Nose, Throat: Present: normal ENT inspection Neck: Present: normal inspection Respiratory: Present: no respiratory distress, lungs clear Cardiovascular/Chest: Present: regular rate, rhythm, no murmur Peripheral Pulses: N=norm/S=strong/W=weak/B=bound/A=absent: Carotid (R): Normal, Carotid (L): Normal Gastrointestinal/Abdominal: Present: normal bowel sounds, nondistended, soft Back Exam: Present: normal inspection Extremity Exam: Present: normal inspection, other - Weakness of the right upper and lower extremity Neurological Exam: Present: alert, disoriented to time, disoriented to place Skin Exam: Present: normal color Lymphatic Exam: Present: no adenopathy Laura Coma Scale - Assess Eye Opening: Spontaneous Motor: Obeys Commands Verbal: Confused - Total Coma Scale Total: 14 Initial Stroke Assessment - Date/Time of assessment Stroke Scale Date: 12/01/20 Stroke Scale Time: 14:30 - NIH Stroke Scale Level of Consciousness: Alert LOC Questions (Year and Age): Answers neither correctly LOC Commands (open/close eyes/fist): Performs neither correct Lateral Gaze Paresis: None Visual Field Loss: No visual loss Facial Palsy: Normal movement Right Arm Motor (10 sec hold): Drift Left Arm Motor (10 sec hold): Drift Right Leg Motor (5 sec hold): Drift Left Leg Motor (5 sec hold): No drift Limb Ataxia (finger/nose heel/price): Absent If present, ataxia in:: Right arm Sensory Loss (pinprick arms/legs/face): No sensory loss Language Aphasia (description/naming/reading): No aphasia; normal Dysarthria (speech clarity): Normal articulation Neglect Inattention (visual/tactile/auditory/spatial/person): No neglect Initial Stroke Scale Score:: 7 - Stroke Risk Assessment Stroke Risk Assessment Level: 5-15 Mild-Mod Severe Imp Stroke Inclusion/Exclusion Cri - A Inclusion (Must answer Yes to meet): Patient does not meet inclusion due to greater than 3-1/2-hour timeframe symptoms started at 2:30 in the afternoon it is now 1030 in the - Inclusion Questions: Yes Onset of symptoms <3 1/2 hours of admission to ETC: No - Exclusion Questions: Major symptoms rapidly improving: No Seizure at onset of stroke: No SBP>185; DBP>110 at time treatment is to begin: No Patient received Heparin or Coumadin within 48 hours: No Patient has elevated PTT or Protime/INR: No Stroke, head injury, major surgery, serious trauma in 3 mon.: Yes Previous intracranial hemmorhage: No Recent VA: No Known AV malformation or aneurysm: No Blood glucose <50mg/dl or >400mg/dl: No NIHSS Score <4 or >22 performed by physician: No - Total NIHSS Score Score:: 7 Secondary Stroke Assessment - Date/Time of assessment Stroke Scale Time: 22:49 Progress - Results and Orders Results and Orders: Laboratory Tests 12/01/20 12/01/20 22:30 22:30 WBC 10.4 RBC 4.11 L Hgb 11.7 L Hct 36.4 L MCV 88.6 MCH 28.5 MCHC 32.1 RDW 13.2 Plt Count 216 Neutrophils % 75.6 H Lymphocytes % 15.9 L PTT (Clarke) 26.1 Laboratory Tests 12/01/20 12/01/20 12/01/20 22:30 22:30 22:30 PT INR (Anticoag Therapy) PTT (Clarke) 26.1 Sodium 134 Plasma Sodium 136 Potassium 4.5 Carbon Dioxide 27.6 Anion Gap 9.9 Est GFR (Non-Af Amer) 57 L D BUN/Creatinine Ratio 15.5 Random Glucose 202 H Lactic Acid, Venous 1.3 Calcium 8.6 Calcium Adj for Albumin 9.0 Total Bilirubin 0.5 AST 12 ALT 13 L Alkaline Phosphatase 100 Troponin I 0.020 B-Natriuretic Peptide 1151 H Total Protein 7.0 Albumin 3.1 L Ethyl Alcohol Less than 3.0 12/01/20 22:30 PT 11.2 H INR (Anticoag Therapy) 1.14 H PTT (Keisha) Sodium Plasma Sodium Potassium Carbon Dioxide Anion Gap Est GFR (Non-Af Amer) BUN/Creatinine Ratio Random Glucose Lactic Acid, Venous Calcium Calcium Adj for Albumin Total Bilirubin AST ALT Alkaline Phosphatase Troponin I B-Natriuretic Peptide Total Protein Albumin Ethyl Alcohol 450 mL urine drained from the bladder Laboratory Tests 12/01/20 23:16 Urine Color Yellow Urine Appearance Clear Urine pH 6.0 Ur Specific [place] 1.020 Urine Protein 30 H Urine Glucose (UA) Negative Urine Ketones Negative Urine Blood 25 H Urine Nitrate Negative Urine Bilirubin Negative Urine Urobilinogen Normal Ur Leukocyte Esterase 25 H Urine RBC 10-25 H Urine WBC 5-10 H Ur Epithelial Cells None seen Urine Bacteria Trace Urine Culture Comments Culture to follow - Vital Signs Patient's Vital Signs:: I have reviewed the patient's vital signs. - Sinus rhythm heart rate 67 possible lateral VA of indeterminate age no significant changes from 05/25/2020 Vital Signs: Vital Signs 12/01/20 22:20 12/01/20 22:25 Temperature 36.2 C Pulse Rate 66 60 Respiratory Rate 19 Blood Pressure 119/73 O2 Sat by Pulse Oximetry 95 - EKG EKG #1 EKG: NSR EKG read: Interp. by me EKG Comments: EKG shows a sinus rhythm at 67 possible lateral VA indeterminate age with left no acute changes socially when compared to May 2020 - X-Ray X-Ray #1 X-Ray: chest Interpretation: Interp. by me X-ray Comments: No acute cardiopulmonary disease - Progress/Reassessment Chief Complaint: Altered Mental Status Plan - Plan Plan: Patient will be admitted for urinary tract infection and altered mental status rule out CVA vs TIA the confusion may be caused by the urinary tract infection however with a multitude of problems carotid test strokes valvular problems would be difficult I think right now to rule out completely CVA or TIA especially since this is following the pattern of his last CVA which left him with right sided weakness Departure Clinical Impression: CVA (cerebral vascular accident), Urinary retention, UTI (urinary tract infection), TIA (transient ischemic attack) - Departure Disposition: Home self-care Condition: Stable Referrals: Judi Carcamo MD [Primary Care Provider] -
[2020-12-01 22:48] LABS: Prothrombin Time (Patient) 11.2 Seconds (9.1-10.7)
[2020-12-01 22:50] LABS: INR 1.14 INR (0.92-1.08)
[2020-12-01 22:56] LABS: ALT 13 U/L (19-67); AST 12 U/L (0-48); Albumin * 3.1 gm/dl (3.4-5.0); Alkaline Phosphatase * 100 U/L (50-170); Anion Gap 9.9 mmol/L (6.8-13.8); BNP * 1151 pg/mL (5-650); BUN/Creatinine Ratio 15.5 (9.0-21.6); Bilirubin, Total 0.5 mg/dL (0.0-1.1); Blood Urea Nitrogen 20 mg/dL (6-23); Calcium * 8.6 mg/dL (7.9-10.9); Carbon Dioxide 27.6 mmol/L (24-32.6); Chloride 101 mmol/L (97-106); Glucose * 202 mg/dL (70-110); Potassium 4.5 mmol/L (3.4-4.6); Sodium 134 mmol/L (132-142)
[2020-12-01 23:24] LABS: Urine Bilirubin Negative (NEGATIVE); Urine Blood 25 /ul (NEGATIVE); Urine Ketone Negative (NEGATIVE); Urine Nitrite Negative (NEGATIVE); Urine Protein 30 mg/dL (NEGATIVE); Urine Urobilinogen Normal (NORMAL)
[2020-12-01 23:29] LABS: Urine Appearance Clear (CLEAR); Urine Bacteria TRACE; Urine Color Yellow
[2020-12-01] MEDS ORDERED: cefTRIAXone SODIUM 1,000 MG/100 ML BAG IV ONE (23:44)
[2020-12-02] MEDS ORDERED: FLU VACC QS2020-21(6MOS UP)/PF 60 MCG/0.5 ML SYRINGE IM ONE ×2 (02:43→10:00)
[2020-12-02] MEDS ORDERED: ACETAMINOPHEN 325 MG TABLET PO PRN (08:15)
[2020-12-02] MEDS: ISOSORBIDE MONONITRATE 60 MG TAB.SR.24H PO SCH (08:53)
[2020-12-02] MEDS: LISINOPRIL 10 MG TABLET PO SCH (08:55)
[2020-12-02] MEDS ORDERED: INSULIN GLARGINE,HUM.REC.ANLOG 100 UNITS/ML VIAL SC SCH (09:00)
--- NOTE | 2020-12-02 09:34 | HP ---
Chief Complaint - Chief Complaint Date of Service: 12/02/20 Time of Service: 08:19 Chief Complaint: Altered mental status History of Present Illness: 85-year-old male with a past medical history of anemia, diabetes mellitus type 2, hypertension, CVA, colon neoplasm presents from home with complaints of altered mental status. His states that his confusion started yesterday morning after breakfast. He was having visual hallucinations and saying that his grand sons were in the house. Throughout the day his confusion worsened and he eventually was not able to even recognize his . At this point she decided to bring him to the emergency room. His states he had a similar episode like this in May 2020 and at that time was also diagnosed with UTI. They were concerned for a stroke but imaging was negative. After treatment with antibiotic his mentation returned back to baseline. In the ER he was found to be confused, UA was positive for leukocyte esterase. CT head was negative for acute intracranial hemorrhage or mass-effect, chest x-ray showed no consolidation, nonspecific diffuse interstitial prominence which may represent chronic interstitial changes. He was admitted for metabolic encephalopathy and UTI. He did receive a dose of ceftriaxone in the ER. 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 [place]- '12 CLOtest negative. '13 CLOtest negative H/O elbow surgery (Resolved) Onset Date: Unknown right H/O colonoscopy (Resolved) Onset Date: ~12/14/11 With Biopsy; Also 01/09/13 and 04/27/16. [place] - '12 tubular adenoma with conner grade sysplasia, infiltrating adenocarcinoma. '13 villous adenoma with low grade dysplasia. Recheck in 3 years. '16 hyperplasic polyp. Recheck 3 years. H/O colectomy (Resolved) Onset Date: ~01/18/12 bagan - sigmoid- adenocarcinoma of colon, moderately differentiated. 2 regional lymph nodes with metastatic adenocarcinoma out of 17 total Family History: Family History (Last Reviewed 12/01/20 @ 22:26 by Brenda Tabor RN) Father , age 63 Heart disease Mother , age 72 Diabetes Social History: (Last Reviewed 12/01/20 @ 22:26 by Brenda Tabor RN) Social History: adopted: No Marital status: household members: spouse Highest level of school completed/degree received: high school graduate Service: Yes Tobacco: Smoking Status: Former smoker Alcohol: alcohol intake: current alcohol intake frequency: holiday/special occasion Dietary Habits: caffeine: Yes Review Of Systems (GEN) - Review of Systems Generalized/Overall Review: Absent: Fever Respiratory: Absent: Shortness of Breath Cardiac: Absent: Chest Pain Abdominal: Absent: Abdominal Pain Genitourinary: Absent: Dysuria Neurological: Present: Other - Confusion Misc: All systems neg except as marked Immunizations: IMMUNIZATION HX Immunizations Up to Date Yes History of Influenza Vaccine Yes Hx Pneumococcal Vaccination Yes Allergies/Adverse Reactions: Allergies Allergy/AdvReac Type Severity Reaction Status Date / Time No Known Allergies Allergy Verified 09/23/20 13:14 Home Medications: HOME MEDICATIONS Acetaminophen [Tylenol] 650 mg PO Q6H PRN #30 tab 05/15/20 [Last Taken Unknown] blood sugar diagnostic See Rx Instructions .ROUTE .MEDSUPPLY #100 ea 06/08/20 [Last Taken Unknown] atorvastatin 40 mg tablet 40 mg PO HS 06/18/20 [Last Taken Unknown] isosorbide mononitrate 60 mg tablet,extended release 24 hr 60 mg PO DAILY #90 tab 08/19/20 [Last Taken Unknown] metformin 1,000 mg tablet,extended release 24hr 1,000 mg PO QHS #90 tab 08/24/20 [Last Taken Unknown] insulin glargine 100 unit/mL subcutaneous solution 45 unit SUBCUT QAM ml 09/23/20 [Last Taken Unknown] atenolol 50 mg tablet 50 mg PO HS #90 tab 10/19/20 [Last Taken Unknown] lisinopril 10 mg tablet 10 mg PO QAM #90 tab 10/19/20 [Last Taken Unknown] insulin syringe-needle U-100 1 mL 30 gauge x 1/2" See Rx Instructions .ROUTE .MEDSUPPLY #100 ea 10/23/20 [Last Taken Unknown] Exam - Exam Vital Signs: Vital Signs - Last Taken Temp 36.7 C 12/02/20 07:41 Pulse 67 12/02/20 08:55 Resp 15 12/02/20 07:41 BP 166/75 H 12/02/20 08:55 Pulse Ox 100 12/02/20 07:41 Constitutional: Present: Alert, Cooperative, Well developed, Well nourished, No distress, Elderly. Absent: Oriented x3 ENT Exam: Present: hearing grossly normal, moist mucous membranes Eye Exam: bilateral eye: normal inspection, EOMI Neck: Present: non-tender, supple. Absent: lymphadenopathy (R), lymphadenopathy (L) Back Exam: Present: normal inspection, no CVA tenderness, no vertebral tenderness Respiratory: Present: lungs clear, no respiratory distress, no accessory muscle use, No wheezing. Absent: crackles, rhonchi, wheezing Cardiovascular/Chest: Present: normal peripheral pulses, regular rate, rhythm, no edema, systolic murmur Peripheral Pulses: dorsalis-pedis (R): 1+, dorsalis-pedis (L): 1+ Abdomen: Present: Normal bowel sounds, soft, nontender Extremity: Present: no pedal edema Skin Exam: Present: normal color, warm/dry Neurologic: Present: alert, normal mood/affect, other - He is confused and not oriented. He does not follow commands.. Absent: oriented x 3 Appearance: Present: appropriate appearance Eye contact: Present: cooperative Thoughts: Present: normal mood /affect Diagnostic Studies: Abnormal Lab Results 12/01/20 12/01/20 12/01/20 Range/Units 22:30 22:30 22:30 RBC 4.11 L (4.7-6.0) M/mm3 Hgb 11.7 L (13.5-18.0) gm/dL Hct 36.4 L (42.0-52.0) % Immature Gran # (Auto) 0.04 H (0.000-0.0310) K/mm3 Neutrophils % 75.6 H (42-75.0) % Lymphocytes % 15.9 L (20-51) % Neutrophils # 7.9 H (1.3-6.0) K/mm3 PT 11.2 H (9.1-10.7) Seconds INR (Anticoag Therapy) 1.14 H (0.92-1.08) INR Est GFR (Non-Af Amer) 57 L D (60-130) mL/min Random Glucose 202 H (70-110) mg/dL ALT 13 L (19-67) U/L B-Natriuretic Peptide 1151 H (5-650) pg/mL Albumin 3.1 L (3.4-5.0) gm/dl Urine Protein (NEGATIVE) mg/dL Urine Blood (NEGATIVE) /ul Ur Leukocyte Esterase (NEGATIVE) /ul Urine RBC (0-5) /hpf Urine WBC (0-5) /hpf 12/01/20 Range/Units 23:16 RBC (4.7-6.0) M/mm3 Hgb (13.5-18.0) gm/dL Hct (42.0-52.0) % Immature Gran # (Auto) (0.000-0.0310) K/mm3 Neutrophils % (42-75.0) % Lymphocytes % (20-51) % Neutrophils # (1.3-6.0) K/mm3 PT (9.1-10.7) Seconds INR (Anticoag Therapy) (0.92-1.08) INR Est GFR (Non-Af Amer) (60-130) mL/min Random Glucose (70-110) mg/dL ALT (19-67) U/L B-Natriuretic Peptide (5-650) pg/mL Albumin (3.4-5.0) gm/dl Urine Protein 30 H (NEGATIVE) mg/dL Urine Blood 25 H (NEGATIVE) /ul Ur Leukocyte Esterase 25 H (NEGATIVE) /ul Urine RBC 10-25 H (0-5) /hpf Urine WBC 5-10 H (0-5) /hpf Laboratory Results WBC 10.4 K/mm3 (4.0-10.5) 12/01/20 22:30 RBC 4.11 M/mm3 (4.7-6.0) L 12/01/20 22:30 Hgb 11.7 gm/dL (13.5-18.0) L 12/01/20 22:30 Hct 36.4 % (42.0-52.0) L 12/01/20 22:30 MCV 88.6 fl (78-100) 01/26/21 22:30 MCH 28.5 pg (27-31) 12/01/20 22:30 MCHC 32.1 g/dl (32-36) 12/01/20 22:30 RDW 13.2 % (11.5-14.0) 12/01/20 22:30 Plt Count 216 K/mm3 (150-450) 12/01/20 22: MPV 9.6 fl (8-11.3) 12/01/20 22:30 Immature Gran % (Auto) 0.40 % (0.001-0.429) 12/01/20 22: Immature Gran # (Auto) 0.04 K/mm3 (0.000-0.0310) H 12/01/20 22: Neutrophils % 75.6 % (42-75.0) H 12/01/20 22:30 Lymphocytes % 15.9 % (20-51) L 12/01/20 22: Monocytes % 7.2 % (0.0-9) 12/01/20 22: Eosinophils % 0.8 % (0.0-3.0) 12/01/20 22: Basophils % 0.1 % (0.0-1.0) 12/01/20: Nucleated RBC % 0.0 k/mm3 (0-1) 12/01/20 22: Neutrophils # 7.9 K/mm3 (1.3-6.0) H 12/01/20 22:30 Lymphocytes # 1.66 k/mm3 (1.5-3.5) 12/01/20 22: Monocytes # 0.8 k/mm3 (0.0-1.0) 12/01/20 22: Eosinophils # 0.1 k/mm3 (0.0-0.7) 12/01/20 22: Absolute Basophils 0.0 k/mm3 (0.0-0.1) 12/01/20 22:30 PT 11.2 Seconds (9.1-10.7) H 12/01/20 22:30 INR (Anticoag Therapy) 1.14 INR (0.92-1.08) H 12/01/20 22:30 PTT ([place]isha) 26.1 Seconds (24-32) 12/01/20 22:30 Sodium 134 mmol/L (132-142) 12/01/20 22:30 Plasma Sodium 136 mmol/L (130-142) 12/01/20 22:30 Potassium 4.5 mmol/L (3.4-4.6) 12/01/20 22: Chloride 101 mmol/L (97-106) 12/01/20 22:30 Carbon Dioxide 27.6 mmol/L (24-32.6) 12/01/20 22: Anion Gap 9.9 mmol/L (6.8-13.8) 12/01/20 22: BUN 20 mg/dL (6-23) D 12/01/20 22: Creatinine 1.29 mg/dL (0.4-1.4) 12/01/20: Est GFR (Non-Af Amer) 57 mL/min (60-130) L D 12/01/20: BUN/Creatinine Ratio 15.5 (9.0-21.6) 12/01/20: Random Glucose 202 mg/dL (70-110) H 12/01/20 22: Lactic Acid, Venous 1.3 mmol/L (0.4-2.0) 12/01/20: Calcium 8.6 mg/dL (7.9-10.9) 12/01/20: Calcium Adj for Albumin 9.0 mg/dL (8.4-10.2) 12/01/20: Total Bilirubin 0.5 mg/dL (0.0-1.1) 12/01/20: AST 12 U/L (0-48) 12/01/20: ALT 13 U/L (19-67) L 12/01/20 22:30 Alkaline Phosphatase 100 U/L (50-170) 12/01/20:30 Troponin I 0.020 ng/mL (0.00-0.10) 12/01/20: B-Natriuretic Peptide 1151 pg/mL (5-650) H 12/01/20 22:30 Total Protein 7.0 gm/dL (6.2-8.2) 12/01/20 22:30 Albumin 3.1 gm/dl (3.4-5.0) L 12/01/20 22:30 Urine Color Yellow 12/01/20 23:16 Urine Appearance Clear (CLEAR) 12/01/20 23:16 Urine pH 6.0 pH (5.0-7.0) 12/01/20 23:16 Ur Specific [place] 1.020 SP.GR. (1.005-1.030) 12/01/20 23:16 Urine Protein 30 mg/dL (NEGATIVE) H 12/01/20 23:16 Urine Glucose (UA) Negative mg/dL (NEGATIVE) 12/01/20 23:16 Urine Ketones Negative mg/dL (NEGATIVE) 12/01/20 23:16 Urine Blood 25 /ul (NEGATIVE) H 12/01/20 23:16 Urine Nitrate Negative (NEGATIVE) 12/01/20 23:16 Urine Bilirubin Negative mg/dl (NEGATIVE) 12/01/20 23:16 Urine Urobilinogen Normal EU/dl (NORMAL) 12/01/20 23:16 Ur Leukocyte Esterase 25 /ul (NEGATIVE) H 12/01/20 23:16 Urine RBC 10-25 /hpf (0-5) H 12/01/20 23:16 Urine WBC 5-10 /hpf (0-5) H 12/01/20 23:16 Ur Epithelial Cells None seen /hpf (0-5) 12/01/20 23:16 Urine Bacteria Trace (NONE) 12/01/20 23:16 Urine Culture Comments Culture to follow 12/01/20 23:16 Ethyl Alcohol Less than 3.0 mg/dL (0.0-10.0) 12/01/20 22:30 SARS-CoV-2 (PCR) Not detected (NotDetected) 12/01/20 23:57 Assessment/Plan - Narrative Narrative: 85-year-old male with a past medical history of anemia, diabetes mellitus type 2, hypertension, CVA, colon neoplasm presents from home with complaints of altered mental status. His states that his confusion started yesterday morning after breakfast. He was having visual hallucinations and saying that his grand sons were in the house. Throughout the day his confusion worsened and he eventually was not able to even recognize his . At this point she decided to bring him to the emergency room. His states he had a similar episode like this in May 2020 and at that time was also diagnosed with UTI. They were concerned for a stroke but imaging was negative. After treatment with antibiotic his mentation returned back to baseline. In the ER he was found to be confused, UA was positive for leukocyte esterase. CT head was negative for acute intracranial hemorrhage or mass-effect, chest x-ray showed no consolidation, nonspecific diffuse interstitial prominence which may represent chronic interstitial changes. He was admitted for metabolic encephalopathy and UTI. He did receive a dose of ceftriaxone in the ER. Plan #1 continue ceftriaxone day 2 #2 resume home medications for comorbidities #3 CBC and CMP in the morning #4 VTE prophylaxis with Lovenox #5 admit inpatient - Assessment/Plan (1) Acute metabolic encephalopathy Problem: Acute (2) UTI (urinary tract infection) Problem: Acute Qualifiers: (3) HTN (hypertension) Problem: Chronic Qualifiers: Qualified Code(s): I10 - Essential (primary) hypertension (4) History of colon cancer Problem: Chronic (5) Diabetes Problem: Chronic Qualifiers: Diabetes mellitus type: type 2
[2020-12-02] MEDS ORDERED: MAGNESIUM HYDROXIDE 30 ML UDC PO PRN (10:03)
[2020-12-02] MEDS ORDERED: BISACODYL 10 MG SUPP.RECT RC PRN (10:03)
[2020-12-02] MEDS: ENOXAPARIN SODIUM 40 MG/0.4 ML SYRG SC SCH (12:01)
[2020-12-02] MEDS: TAMSULOSIN HCL 0.4 MG CAP.SR.24H PO SCH (18:52)
[2020-12-02] MEDS: ROSUVASTATIN CALCIUM 20 MG TABLET PO SCH (21:12)
[2020-12-02] MEDS: ATENOLOL 50 MG TABLET PO SCH (21:13)
[2020-12-03 06:22] LABS: Hematocrit 39.4 % (42.0-52.0); Hemoglobin 12.8 gm/dL (13.5-18.0); Mean Cell Volume 87.4 fl (78-100); Mean Corpuscular Hemoglobin 28.4 pg (27-31); Mean Corpuscular Hgb Conc 32.5 g/dl (32-36); Mean Platelet Volume 9.5 fl (8-11.3); Neutrophil # 7.3 K/mm3 (1.3-6.0); Neutrophil % 75.3 % (42-75.0); Platelet Count 235 K/mm3 (150-450); Red Blood Count 4.51 M/mm3 (4.7-6.0); Red Cell Distribution Width 12.9 % (11.5-14.0); White Blood Count 9.8 K/mm3 (4.0-10.5)
[2020-12-03 06:38] LABS: Albumin * 3.2 gm/dl (3.4-5.0); Anion Gap 12.2 mmol/L (6.8-13.8); BUN/Creatinine Ratio 9.8 (9.0-21.6); Bilirubin, Total 0.5 mg/dL (0.0-1.1); Ca. Corrected For Albumin 9.1 mg/dL (8.4-10.2); Calcium * 8.8 mg/dL (7.9-10.9); Carbon Dioxide 27.7 mmol/L (24-32.6); Potassium 3.9 mmol/L (3.4-4.6); Total Protein 7.5 gm/dL (6.2-8.2)
--- NOTE | 2020-12-03 08:37 | PN ---
Subjective - Date and Time Seen Date: 12/03/20 Time: 08:13 Subjective Narrative: He feels well. Denies chest pain, abdominal pain shortness of breath or pain with urination. He is oriented to self but not to place or time. This is a slight improvement from yesterday. Objective - Review of Systems Generalized/Overall Review: Denies: Fever Respiratory: Denies: Shortness of Breath Cardiac: Denies: Chest Pain Abdominal: Denies: Abdominal Pain Genitourinary Symptoms: Denies: Dysuria Misc: All systems neg except as marked - Vitals Vitals: Last Vital Signs Temp 36.3 C 12/03/20 02:00 Pulse 73 12/03/20 07:37 Resp 18 12/03/20 07:37 BP 145/70 12/03/20 07:37 Pulse Ox 97 12/03/20 07:37 - Abnormal Lab Findings Abnormal Lab Findings: Abnormal Lab Results 12/03/20 12/03/20 Range/Units 06:17 06:17 RBC 4.51 L (4.7-6.0) M/mm3 Hgb 12.8 L (13.5-18.0) gm/dL Hct 39.4 L (42.0-52.0) % Immature Gran # (Auto) 0.04 H (0.000-0.0310) K/mm3 Neutrophils % 75.3 H (42-75.0) % Lymphocytes % 15.5 L (20-51) % Neutrophils # 7.3 H (1.3-6.0) K/mm3 Random Glucose 61 L D (70-110) mg/dL ALT 12 L (19-67) U/L Albumin 3.2 L (3.4-5.0) gm/dl - Exam Constitutional: Present: Alert, Cooperative - Oriented to himself, Well developed, Well nourished, No distress, Elderly. Absent: Oriented x3 - Oriented x1 to person ENT Exam: Present: hearing grossly normal, moist mucous membranes Neck: Present: non-tender, supple. Absent: lymphadenopathy (R), lymphadenopathy (L) Respiratory: Present: lungs clear, no respiratory distress, no accessory muscle use, No wheezing. Absent: crackles, rhonchi Cardiovascular/Chest: Present: normal peripheral pulses, regular rate, rhythm, no edema, no murmur Abdomen: Present: Normal bowel sounds, soft, nontender Extremity: Present: no pedal edema Skin Exam: Present: normal color, warm/dry Neurologic: Present: alert, normal mood/affect, other - Confused Appearance: Present: appropriate appearance. Absent: appropriate insight Eye contact: Present: cooperative Assessment/Plan Plan Narrative: 85-year-old male with a past medical history of anemia, diabetes mellitus type 2, hypertension, CVA, colon neoplasm presents from home with complaints of altered mental status. His states that his confusion started yesterday morning after breakfast. He was having visual hallucinations and saying that his grand sons were in the house. Throughout the day his confusion worsened and he eventually was not able to even recognize his . At this point she decided to bring him to the emergency room. His states he had a similar episode like this in May 2020 and at that time was also diagnosed with UTI. They were concerned for a stroke but imaging was negative. After treatment with antibiotic his mentation returned back to baseline. In the ER he was found to be confused, UA was positive for leukocyte esterase. CT head was negative for acute intracranial hemorrhage or mass-effect, chest x-ray showed no consolidation, nonspecific diffuse interstitial prominence which may represent chronic interstitial changes. He was admitted for metabolic encephalopathy and UTI. He did receive a dose of ceftriaxone in the ER. He was evaluated by physical therapy yesterday and they determined that he will need 24/7 care at home or custodial placement due to his confusion. Today he is oriented to self but continues to be confused with visual hallucinations. He is tolerating his diet and urinating well. Urine culture is growing gram-negative bacilli, final sensitivities pending. Plan #1 continue ceftriaxone day 2 #2 resume home medications for comorbidities #3 CBC and CMP in the morning #4 VTE prophylaxis with Lovenox #5 admit inpatient #6 he had an episode of hypoglycemia this morning at 61. I will decrease his Lantus from 45 units daily to 25 units daily. - Problems/Diagnosis (1) Acute metabolic encephalopathy Problem: Acute (2) UTI (urinary tract infection) Problem: Acute Qualifiers: (3) HTN (hypertension) Problem: Chronic Qualifiers: (4) History of colon cancer Problem: Chronic (5) Diabetes Problem: Chronic Qualifiers: Diabetes mellitus type: type 2
[2020-12-03] MEDS: ISOSORBIDE MONONITRATE 60 MG TAB.SR.24H PO SCH (09:36)
[2020-12-03] MEDS: ASPIRIN 325 MG TABLET.DR PO SCH (09:36)
[2020-12-03] MEDS: LISINOPRIL 10 MG TABLET PO SCH (09:39)
[2020-12-03] MEDS: INSULIN GLARGINE,HUM.REC.ANLOG 100 UNITS/ML VIAL SC SCH (09:42)
[2020-12-03] MEDS: ENOXAPARIN SODIUM 40 MG/0.4 ML SYRG SC SCH (09:44)
[2020-12-03] MEDS: TAMSULOSIN HCL 0.4 MG CAP.SR.24H PO SCH (18:43)
[2020-12-03] MEDS: ROSUVASTATIN CALCIUM 20 MG TABLET PO SCH (20:13)
[2020-12-03] MEDS: ATENOLOL 50 MG TABLET PO SCH (20:14)
[2020-12-04 06:32] LABS: Hematocrit 34.8 % (42.0-52.0); Hemoglobin 11.5 gm/dL (13.5-18.0); Mean Cell Volume 86.6 fl (78-100); Mean Corpuscular Hemoglobin 28.6 pg (27-31); Mean Platelet Volume 9.8 fl (8-11.3); Neutrophil # 5.9 K/mm3 (1.3-6.0); Neutrophil % 68.6 % (42-75.0); Platelet Count 211 K/mm3 (150-450); Red Blood Count 4.02 M/mm3 (4.7-6.0); Red Cell Distribution Width 12.8 % (11.5-14.0); White Blood Count 8.6 K/mm3 (4.0-10.5)
[2020-12-04 06:50] LABS: Albumin * 2.9 gm/dl (3.4-5.0); Anion Gap 10.8 mmol/L (6.8-13.8); BUN/Creatinine Ratio 14.7 (9.0-21.6); Bilirubin, Total 0.5 mg/dL (0.0-1.1); Calcium * 8.4 mg/dL (7.9-10.9); Carbon Dioxide 26.3 mmol/L (24-32.6); Potassium 4.1 mmol/L (3.4-4.6); Total Protein 6.5 gm/dL (6.2-8.2)
[2020-12-04] MEDS: ASPIRIN 325 MG TABLET.DR PO SCH (08:08)
[2020-12-04] MEDS: ISOSORBIDE MONONITRATE 60 MG TAB.SR.24H PO SCH (08:08)
[2020-12-04] MEDS: LISINOPRIL 10 MG TABLET PO SCH (08:08)
[2020-12-04] MEDS: INSULIN GLARGINE,HUM.REC.ANLOG 100 UNITS/ML VIAL SC SCH (08:09)
--- NOTE | 2020-12-04 10:08 | DS ---
(1) Acute metabolic encephalopathy Problem: Acute (2) UTI (urinary tract infection) Problem: Acute Qualifiers: (3) HTN (hypertension) Problem: Chronic Qualifiers: (4) History of colon cancer Problem: Chronic (5) Diabetes Problem: Chronic Qualifiers: Diabetes mellitus type: type 2 Hospital Course: 85-year-old male with a past medical history of anemia, diabetes mellitus type 2, hypertension, CVA, colon neoplasm presents from home with complaints of altered mental status. His states that his confusion started yesterday morning after breakfast. He was having visual hallucinations and saying that his grand sons were in the house. Throughout the day his confusion worsened and he eventually was not able to even recognize his . At this point she decided to bring him to the emergency room. His states he had a similar episode like this in May 2020 and at that time was also diagnosed with UTI. They were concerned for a stroke but imaging was negative. After treatment with antibiotic his mentation returned back to baseline. In the ER he was found to be confused, UA was positive for leukocyte esterase. CT head was negative for acute intracranial hemorrhage or mass-effect, chest x-ray showed no consolidation, nonspecific diffuse interstitial prominence which may represent chronic interstitial changes. He was admitted for metabolic encephalopathy and UTI. He did receive a dose of ceftriaxone in the ER. He was evaluated by physical therapy yesterday and they determined that he will need 24/7 care at home or long term placement due to his confusion. Today he is oriented to self but continues to be confused with visual hallucinations. He is tolerating his diet and urinating well. Urine culture is growing gram-negative bacilli, final sensitivities pending. Patient is alert and oriented x3 today he is doing much better. His states his mentation was better when she saw him yesterday. His would still like him to go to a rehab at [facility]. He will be discharged today on 4 more days of Cefpodoxime. He will follow-up with his PCP in the next 1 to 2 weeks. Procedures Performed: none Results and Findings: Pending Mircobiology Results 12/01/20 23:16 Urine,Clean Catch Urine Culture - Preliminary Gram Negative Bacilli Lab Pending Results 12/01/20 22:30: WBC 10.4, RBC 4.11 L, Hgb 11.7 L, Hct 36.4 L, MCV 88.6, MCH 28.5, MCHC 32.1, RDW 13.2, Plt Count 216, MPV 9.6, Immature Gran % (Auto) 0.40, Immature Gran # (Auto) 0.04 H, Neutrophils % 75.6 H, Lymphocytes % 15.9 L, Monocytes % 7.2, Eosinophils % 0.8, Basophils % 0.1, Nucleated RBC % 0.0, Neutrophils # 7.9 H, Lymphocytes # 1.66, Monocytes # 0.8, Eosinophils # 0.1, Absolute Basophils 0.0 12/01/20 22:30: PTT ([place]) 26.1 12/01/20 22:30: Sodium 134, Plasma Sodium 136, Potassium 4.5, Chloride 101, Carbon Dioxide 27.6, Anion Gap 9.9, BUN 20 D, Creatinine 1.29, Est GFR (Non-Af Amer) 57 L D, BUN/Creatinine Ratio 15.5, Random Glucose 202 H, Calcium 8.6, Calcium Adj for Albumin 9.0, Total Bilirubin 0.5, AST 12, ALT 13 L, Alkaline Phosphatase 100, Troponin I 0.020, B-Natriuretic Peptide 1151 H, Total Protein 7.0, Albumin 3.1 L, Ethyl Alcohol Less than 3.0 12/01/20 22:30: Lactic Acid, Venous 1.3 12/01/20 22:30: PT 11.2 H, INR (Anticoag Therapy) 1.14 H 12/01/20 23:16: Urine Color Yellow, Urine Appearance Clear, Urine pH 6.0, Ur Specific [place] 1.020, Urine Protein 30 H, Urine Glucose (UA) Negative, Urine Ketones Negative, Urine Blood 25 H, Urine Nitrate Negative, Urine Bilirubin Negative, Urine Urobilinogen Normal, Ur Leukocyte Esterase 25 H, Urine RBC 10-25 H, Urine WBC 5-10 H, Ur Epithelial Cells None seen, Urine Bacteria Trace, Urine Culture Comments Culture to follow 12/01/20 23:57: SARS-CoV-2 (PCR) Not detected 12/03/20 06:17: WBC 9.8, RBC 4.51 L, Hgb 12.8 L, Hct 39.4 L, MCV 87.4, MCH 28.4, MCHC 32.5, RDW 12.9, Plt Count 235, MPV 9.5, Immature Gran % (Auto) 0.40, Immature Gran # (Auto) 0.04 H, Neutrophils % 75.3 H, Lymphocytes % 15.5 L, Monocytes % 8.0, Eosinophils % 0.7, Basophils % 0.1, Nucleated RBC % 0.0, Neutrophils # 7.3 H, Lymphocytes # 1.51, Monocytes # 0.8, Eosinophils # 0.1, Absolute Basophils 0.0 12/03/20 06:17: Sodium 138, Plasma Sodium 137, Potassium 3.9, Chloride 102, Carbon Dioxide 27.7, Anion Gap 12.2, BUN 10, Creatinine 1.02, Est GFR (Non-Af Amer) 74 D, BUN/Creatinine Ratio 9.8, Random Glucose 61 L D, Calcium 8.8, Calcium Adj for Albumin 9.1, Total Bilirubin 0.5, AST 15, ALT 12 L, Alkaline Phosphatase 105, Total Protein 7.5, Albumin 3.2 L 12/04/20 06:00: WBC 8.6, RBC 4.02 L, Hgb 11.5 L, Hct 34.8 L, MCV 86.6, MCH 28.6, MCHC 33.0, RDW 12.8, Plt Count 211, MPV 9.8, Immature Gran % (Auto) 0.60 H, Immature Gran # (Auto) 0.05 H, Neutrophils % 68.6, Lymphocytes % 19.7 L, Monocytes % 9.5 H, Eosinophils % 1.5, Basophils % 0.1, Nucleated RBC % 0.0, Neutrophils # 5.9, Lymphocytes # 1.69, Monocytes # 0.8, Eosinophils # 0.1, Absolute Basophils 0.0 12/04/20 06:15: Sodium 132, Plasma Sodium 133, Potassium 4.1, Chloride 99, Carbon Dioxide 26.3, Anion Gap 10.8, BUN 16 D, Creatinine 1.09, Est GFR (Non-Af Amer) 69, BUN/Creatinine Ratio 14.7, Random Glucose 136 H D, Calcium 8.4, Calcium Adj for Albumin 9.0, Total Bilirubin 0.5, AST 12, ALT 12 L, Alkaline Phosphatase 90, Total Protein 6.5, Albumin 2.9 L Discharge Location: [facility] Disposition: [facility] Condition: Stable Level of Care: SNF Discharge Activity: Activity as tolerated Discharge Diet: Consistent carbs Correction Therapy: Physical Therapy, Occupation Therapy Referrals: Judi Carcamo MD [Primary Care Provider] - Additional Patient Instructions (free text): Discharging to [facility] for SNF, PT and OT to evaluate and treat. Please call and fax discharge information to [facility]. Prescriptions (Any new or edited meds): Cefpodoxime Proxetil 100 mg PO BID #8 tab Transmission Status: Pending to [facility] Complete Home Medications List: Complete Home Medication List: Acetaminophen [Tylenol] 650 mg PO Q6H PRN #30 tab 05/15/20 blood sugar diagnostic See Rx Instructions .ROUTE .MEDSUPPLY #100 ea 06/08/20 atorvastatin 40 mg tablet 40 mg PO HS 06/18/20 isosorbide mononitrate 60 mg tablet,extended release 24 hr 60 mg PO DAILY #90 tab 08/19/20 metformin 1,000 mg tablet,extended release 24hr 1,000 mg PO QHS #90 tab 08/24/20 insulin glargine 100 unit/mL subcutaneous solution 50 unit SUBCUT QAM ml 09/23/20 atenolol 50 mg tablet 50 mg PO HS #90 tab 10/19/20 lisinopril 10 mg tablet 10 mg PO QAM #90 tab 10/19/20 insulin syringe-needle U-100 1 mL 30 gauge x 1/2" See Rx Instructions .ROUTE .MEDSUPPLY #100 ea 10/23/20 Aspirin 325 mg PO DAILY 12/02/20 Bisacodyl [Gentle Laxative] 10 mg RC DAILY PRN 12/02/20 Magnesium Hydroxide [Milk Of Magnesia] 5 ml PO DAILY PRN 12/02/20 Tamsulosin HCl [Flomax] 0.4 mg PO 1800 12/02/20 Cefpodoxime Proxetil 100 mg PO BID #8 tab 12/04/20
[2020-12-04 11:52] VITALS: BP 122/68
== END 2020-12-04 11:33 | DRG 689 ==
LOC: ER 22:14 → MS 22:14
PROVIDERS: ADMIT Internal Medicine; ATTEND Internal Medicine
DX: Z79.4 Long term (current) use of insulin; Z85.038 Personal history of other malignant neoplasm of large intestine; N39.0 Urinary tract infection, site not specified; E11.9 Type 2 diabetes mellitus without complications; I10 Essential (primary) hypertension; G93.41 Metabolic encephalopathy

== ENCOUNTER 2021-03-24 13:11 | Observation (INO) ==
--- NOTE | 2021-03-24 13:34 | ERNOTE ---
Neuro HPI ER Record Date of Service: 03/24/21 Presenting Symptoms: confusion Time Seen by Provider: 03/24/21 13:22 Source: patient, family, RN notes reviewed, past records Exam Limitations: clinical condition Immunizations: IMMUNIZATION HX Immunizations Up to Date Yes History of Influenza Vaccine Yes Hx Pneumococcal Vaccination Yes Allergies/Adverse Reactions: Allergies Allergy/AdvReac Type Severity Reaction Status Date / Time No Known Allergies Allergy Verified 09/23/20 13:14 Home Medications: HOME MEDICATIONS Acetaminophen [Tylenol] 650 mg PO Q6H PRN #30 tab 05/15/20 [Last Taken Unknown] blood sugar diagnostic See Rx Instructions .ROUTE .MEDSUPPLY #100 ea 06/08/20 [Last Taken Unknown] atenolol 50 mg tablet 50 mg PO HS #90 tab 10/19/20 [Last Taken Unknown] Aspirin 325 mg PO DAILY 12/02/20 [Last Taken Unknown] Bisacodyl [Gentle Laxative] 10 mg RC DAILY PRN 12/02/20 [Last Taken Unknown] insulin glargine 100 unit/mL subcutaneous solution 45 unit SUBCUT QAM ml 12/09/20 [Last Taken Unknown] bisacodyl 10 mg rectal suppository 10 mg MO DAILY PRN #12 ea 12/29/20 [Last Taken Unknown] magnesium hydroxide 2,400 mg/10 mL oral suspension 5 ml PO DAILY PRN #1000 ml 12/29/20 [Last Taken Unknown] atorvastatin 40 mg tablet 40 mg PO HS #90 tab 12/31/20 [Last Taken Unknown] finasteride 5 mg tablet 5 mg PO DAILY #90 tab 12/31/20 [Last Taken Unknown] isosorbide mononitrate 60 mg tablet,extended release 24 hr 60 mg PO DAILY #90 tab 12/31/20 [Last Taken Unknown] lisinopril 30 mg tablet 30 mg PO DAILY #90 tab 12/31/20 [Last Taken Unknown] methenamine hippurate 1 gram tablet 1 g PO BID #180 tab 12/31/20 [Last Taken Unknown] tamsulosin 0.4 mg capsule 0.4 mg PO 1800 #90 cap 12/31/20 [Last Taken Unknown] metformin 1,000 mg tablet,extended release 24hr 1,000 mg PO QHS #14 tab 02/18/21 [Last Taken Unknown] insulin syringe-needle U-100 1 mL 30 gauge x 1/2" See Rx Instructions .ROUTE .MEDSUPPLY #100 ea 03/18/21 [Last Taken Unknown] - History of Present Illness Narrative: Raúl is an 85-year-old male brought to the emergency department from his home by ambulance for hypoglycemia. His reports that he became confused shortly before arrival. She tried to get him to eat or drink some juice but he would not cooperate. His blood glucose was 47 when EMS arrived. He was given an amp of D50 and his blood sugar improved to 122 on arrival here. Despite the improvement in his blood glucose, he continues to be confused. He is oriented to person only. His son reports that he did eat breakfast this morning and took his insulin as usual. The family also reports that he has been confused in the past when he has had urinary tract infections. The patient is not able to give much of a history. He reports that he just does not feel good. Date (Duration): 03/24/21 Onset: gradual onset, continues in ER - Character of Deficits Baseline Cognition: Present: alert but confused Baseline Gait: Present: uses a cane/walker Associated Symptoms: Reports: disoriented, confused. Denies: headache, decreased responsiveness Prior Treament: Reports: similar symptoms before. Denies: recently seen Review of Systems - Narrative Narrative: Unable to obtain d/t patient's mental status Medical History (Last Reviewed 03/24/21 @ 16:59 by Dona Roy NP) Peptic ulcer (Chronic) Onset Date: ~1979 Hypertension (Chronic) Onset Date: Unknown Diabetes (Chronic) Onset Date: Unknown Colon neoplasm (Chronic) Onset Date: ~12/14/11 history of-Malignant; Infiltrating adenocarcinoma T3 N1b colon carcinoma Anemia (Chronic) Onset Date: Unknown CVA (cerebral vascular accident) Onset Date: ~05/12/20 Surgical History: Surgical History (Last Reviewed 03/24/21 @ 16:59 by Dona Roy NP) H/O esophagogastroduodenoscopy (Resolved) Onset Date: ~12/14/11 With Biopsy; also 08/02/13. Rachel- CLOtest negative. CLOtest negative H/O elbow surgery (Resolved) Onset Date: Unknown right H/O colonoscopy (Resolved) Onset Date: ~12/14/11 With Biopsy; Also 01/09/13 and 04/27/16. Bagan - '12 tubular adenoma with conner grade sysplasia, infiltrating adenocarcinoma. '13 villous adenoma with low grade dysplasia. Recheck in 3 years. '16 hyperplasic polyp. Recheck 3 years. H/O colectomy (Resolved) Onset Date: ~01/18/12 bagan - sigmoid- adenocarcinoma of colon, moderately differentiated. 2 regional lymph nodes with metastatic adenocarcinoma out of 17 total Family History: Family History (Last Reviewed 03/24/21 @ 16:59 by Dona Roy NP) Father , age 63 Heart disease Mother , age 72 Diabetes Social History: (Last Reviewed 03/24/21 @ 16:59 by Dona Roy NP) Social History: adopted: No Marital status: household members: spouse Highest level of school completed/degree received: high school graduate Service: Yes Tobacco: Smoking Status: Former smoker Alcohol: alcohol intake: current alcohol intake frequency: holiday/special occasion Dietary Habits: caffeine: Yes Physical Exam - Physical Exam General Appearance: Present: wd/wn, alert, mild distress Head Exam: Present: normal inspection, no evidence of injury Eye Exam: Normal inspection: bilateral, PERRL: bilateral, EOMI: bilateral Ears, Nose, Throat: Present: normal ENT inspection, normal pharynx Neck: Present: normal inspection, nontender, supple Respiratory: Present: no respiratory distress, normal breath sounds, no accessory muscle use, lungs clear Cardiovascular/Chest: Present: regular rate, rhythm, normal peripheral pulses, systolic murmur Gastrointestinal/Abdominal: Present: nontender, nondistended, soft Extremity Exam: Present: normal inspection, non-tender, no edema Neurological Exam: Present: alert, normal mood/affect, no motor/sensory deficits. Absent: oriented Skin Exam: Present: warm/dry, pallor Laura Coma Scale - Assess Eye Opening: Spontaneous Motor: Obeys Commands Verbal: Confused - Total Coma Scale Total: 14 Initial Stroke Assessment - NIH Stroke Scale Level of Consciousness: Alert LOC Questions (Year and Age): Answers one correctly LOC Commands (open/close eyes/fist): Performs neither correct Lateral Gaze Paresis: None Visual Field Loss: No visual loss Facial Palsy: Minor paralysis Right Arm Motor (10 sec hold): No drift Left Arm Motor (10 sec hold): No drift Right Leg Motor (5 sec hold): No drift Left Leg Motor (5 sec hold): No drift Limb Ataxia (finger/nose heel/price): Absent Sensory Loss (pinprick arms/legs/face): No sensory loss Language Aphasia (description/naming/reading): Mild, yet understandable Dysarthria (speech clarity): Slurring, intelligeble Neglect Inattention (visual/tactile/auditory/spatial/person): No neglect Initial Stroke Scale Score:: 6 Stroke Inclusion/Exclusion Cri - Inclusion Questions: Yes Onset of symptoms <3 1/2 hours of admission to ETC: No Progress - Results and Orders Patient's Lab Results:: I have reviewed the patient's lab results. - Vital Signs Patient's Vital Signs:: I have reviewed the patient's vital signs. Vital Signs: Vital Signs 03/24/21 13:11 Temperature 36.4 C Pulse Rate 92 Respiratory Rate 12 Blood Pressure 161/83 H O2 Sat by Pulse Oximetry 97 - EKG EKG #1 EKG: NSR, nonspecific ST T wave changes EKG read: Reviewed by me - X-Ray X-Ray #1 X-Ray: chest Interpretation: Reviewed by me X-ray Comments: NO acute cardiopulmonary findings - CT/Ultrasound CT/Ultrasound Narrative: Head CT is without acute findings per radiologist report - Progress/Reassessment Chief Complaint: Diabetes Related Problem Progress:: Improved Plan - Plan Plan: The patient's blood glucose dropped from the 120's to 77 after approximately 90 minutes. He ate and reported feeling better but is still disoriented. His work- up is unremarkable. Dr. Carcamo was contacted and the patient will be admitted to observation due to her ongoing confusion and labile blood sugars. Departure Clinical Impression: Altered mental status, Hypoglycemia associated with diabetes - Departure Disposition: Still a patient Condition: Stable Referrals: Judi Carcamo MD [Primary Care Provider] -
[2021-03-24 14:01] LABS: Hematocrit 37.7 % (42.0-52.0); Hemoglobin 12.3 gm/dL (13.5-18.0); Mean Corpuscular Hemoglobin 29.4 pg (27-31); Mean Corpuscular Hgb Conc 32.6 g/dl (32-36); Mean Platelet Volume 9.7 fl (8-11.3); Neutrophil # 9.5 K/mm3 (1.3-6.0); Neutrophil % 90.6 % (42-75.0); Platelet Count 179 K/mm3 (150-450); Red Blood Count 4.19 M/mm3 (4.7-6.0); Red Cell Distribution Width 13.4 % (11.5-14.0); White Blood Count 10.5 K/mm3 (4.0-10.5)
[2021-03-24 14:09] LABS: Urine Bilirubin Negative (NEGATIVE); Urine Blood Negative /ul (NEGATIVE); Urine Ketone Negative (NEGATIVE); Urine Nitrite Negative (NEGATIVE); Urine Protein Negative (NEGATIVE); Urine Urobilinogen Normal (NORMAL)
[2021-03-24 14:25] LABS: ALT 18 U/L (19-67); AST 14 U/L (0-48); Albumin * 3.4 gm/dl (3.4-5.0); Alkaline Phosphatase * 87 U/L (50-170); Anion Gap 14.6 mmol/L (6.8-13.8); BUN/Creatinine Ratio 14.6 (9.0-21.6); Bilirubin, Total 0.7 mg/dL (0.0-1.1); Blood Urea Nitrogen 13 mg/dL (6-23); Ca. Corrected For Albumin 8.9 mg/dL (8.4-10.2); Calcium * 8.7 mg/dL (7.9-10.9); Carbon Dioxide 28.2 mmol/L (24-32.6); Chloride 100 mmol/L (97-106); Glucose * 97 mg/dL (70-110); Potassium 3.8 mmol/L (3.4-4.6); Sodium 139 mmol/L (132-142); Total Protein 6.9 gm/dL (6.2-8.2); Troponin I Less than 0.017 ng/mL (0.00-0.10)
[2021-03-24 14:48] LABS: Urine Appearance Clear (CLEAR); Urine Color Yellow
[2021-03-24 14:49] LABS: Urine Bacteria TRACE; Urine RBC None Seen /hpf (0-5)
[2021-03-24] MEDS ORDERED: DEXTROSE 5%-0.5 NORMAL SALINE 1,000 ML IV PRN (16:06)
--- NOTE | 2021-03-24 17:19 | HP ---
Chief Complaint - Chief Complaint Date of Service: 03/24/21 Time of Service: 17:12 Chief Complaint: low blood sugar/AMS History of Present Illness: Raúl Dumont is an 85-year-old male with past medical history significant for coronary artery disease, CVA, mild cognitive impairment, hypertension, hyperlipidemia, diabetes mellitus type 2, aortic stenosis, carotid artery stenosis, mild cognitive impairment who was admitted on 03/24/2021 because of altered mental status and low blood sugar. The patient did not eat his breakfast but still took his insulin as usual as per son. His reported that he became confused. She tried to get him to eat or drink some juice but he would not cooperate. His blood glucose was 47 when EMS arrived. He was given an amp of D50 and his blood sugar improved to 122 . Despite the improvement in his blood glucose, he continued to be confused. He was oriented to person only in the ED. He has had confusion in the past when he has had urinary tract infections. He is now AAO x 2 ( name and place) in the floor but says he does not feel good. He does not remember at all what happened in the morning or what brought him to the hospital. I recounted to him what transpired and he said - Is that so ? His chest x-ray showed no acute cardiopulmonary findings and his EKG was sinus rhythm. His urinalysis showed no UTI and his lab work was unremarkable with a blood sugar of 97. His head CT scan showed-No acute intracranial process.Cerebral volume loss. Chronic small vessel ischemic disease.Paranasal sinus disease with small air-fluid levels of the left maxillary sinus and left sphenoid sinus. This can be seen with acute sinusitis in the appropriate clinical setting. He was admitted for observation and further management. Medical History (Last Reviewed 03/24/21 @ 17:43 by Aron Hilario RN) Peptic ulcer (Chronic) Onset Date: ~1979 Hypertension (Chronic) Onset Date: Unknown Diabetes (Chronic) Onset Date: Unknown Colon neoplasm (Chronic) Onset Date: ~12/14/11 history of-Malignant; Infiltrating adenocarcinoma T3 N1b colon carcinoma Anemia (Chronic) Onset Date: Unknown CVA (cerebral vascular accident) Onset Date: ~05/12/20 Surgical History: Surgical History (Last Reviewed 03/24/21 @ 17:43 by Aron Hilario RN) H/O esophagogastroduodenoscopy (Resolved) Onset Date: ~12/14/11 With Biopsy; also 08/02/13. Bagan- ' CLOtest negative. CLOtest negative H/O elbow surgery (Resolved) Onset Date: Unknown right H/O colonoscopy (Resolved) Onset Date: ~12/14/11 With Biopsy; Also 01/09/13 and 04/27/16. Bagan - tubular adenoma with conner grade sysplasia, infiltrating adenocarcinoma. villous adenoma with low grade dysplasia. Recheck in 3 years. hyperplasic polyp. Recheck 3 years. H/O colectomy (Resolved) Onset Date: ~01/18/12 bagan - sigmoid- adenocarcinoma of colon, moderately differentiated. 2 regional lymph nodes with metastatic adenocarcinoma out of 17 total Family History: Family History (Last Reviewed 03/24/21 @ 17:43 by Aron Hilario RN) Father , age 63 Heart disease Mother , age 72 Diabetes Social History: (Last Reviewed 03/24/21 @ 17:43 by Aron Hilario RN) Social History: adopted: No Marital status: household members: spouse Highest level of school completed/degree received: high school graduate Service: Yes Tobacco: Smoking Status: Former smoker Alcohol: alcohol intake: current alcohol intake frequency: holiday/special occasion Dietary Habits: caffeine: Yes Review Of Systems (GEN) - Review of Systems Generalized/Overall Review: Present: Weakness. Absent: Fever, Malaise EENTM: Absent: Blurred Vision Respiratory: Absent: Cough, Shortness of Breath, Orthopnea Cardiac: Absent: Chest Pain, Edema, Palpitations Abdominal: Absent: Nausea, Vomiting, Hematemesis Genitourinary: Absent: Urgency, Frequency Musculoskeletal: Absent: Joint Pain, Back Pain Neurological: Absent: Headache Skin: Absent: Lesions, Rash Endocrine: Absent: Intolerance to Cold, Intolerance to Heat Misc: All systems neg except as marked - May not be accurate due to his mentatio n Immunizations: IMMUNIZATION HX Immunizations Up to Date Yes History of Influenza Vaccine Yes Hx Pneumococcal Vaccination Yes Allergies/Adverse Reactions: Allergies Allergy/AdvReac Type Severity Reaction Status Date / Time No Known Allergies Allergy Verified 03/24/21 17:43 Home Medications: HOME MEDICATIONS Acetaminophen [Tylenol] 650 mg PO Q6H PRN #30 tab 05/15/20 [Last Taken Unknown] blood sugar diagnostic See Rx Instructions .ROUTE .MEDSUPPLY #100 ea 06/08/20 [Last Taken Unknown] Bisacodyl [Gentle Laxative] 10 mg RC DAILY PRN 12/02/20 [Last Taken Unknown] insulin glargine 100 unit/mL subcutaneous solution 45 unit SUBCUT QAM ml 12/09/20 [Last Taken Unknown] bisacodyl 10 mg rectal suppository 10 mg PA DAILY PRN #12 ea 12/29/20 [Last Taken Unknown] atorvastatin 40 mg tablet 40 mg PO HS #90 tab 12/31/20 [Last Taken Unknown] finasteride 5 mg tablet 5 mg PO DAILY #90 tab 12/31/20 [Last Taken Unknown] isosorbide mononitrate 60 mg tablet,extended release 24 hr 60 mg PO DAILY #90 tab 12/31/20 [Last Taken Unknown] lisinopril 30 mg tablet 30 mg PO DAILY #90 tab 12/31/20 [Last Taken Unknown] methenamine hippurate 1 gram tablet 1 g PO BID #180 tab 12/31/20 [Last Taken Unknown] tamsulosin 0.4 mg capsule 0.4 mg PO 1800 #90 cap 12/31/20 [Last Taken Unknown] metformin 1,000 mg tablet,extended release 24hr 1,000 mg PO QHS #14 tab 02/18/21 [Last Taken Unknown] insulin syringe-needle U-100 1 mL 30 gauge x 1/2" See Rx Instructions .ROUTE .MEDSUPPLY #100 ea 03/18/21 [Last Taken Unknown] Atenolol [Tenormin] 50 mg PO BID 03/24/21 [Last Taken Unknown] Exam - Exam Vital Signs: Vital Signs - Last Taken Temp 36.4 C 03/24/21 13:11 Pulse 88 03/24/21 16:56 Resp 24 H 03/24/21 16:56 BP 158/88 H 03/24/21 16:56 Pulse Ox 98 03/24/21 16:56 Constitutional: Present: Alert - AAO x 2, Cooperative, Elderly ENT Exam: Present: hearing grossly normal Eye Exam: bilateral eye: normal inspection, PERRL, EOMI Neck: Present: supple. Absent: lymphadenopathy (R), lymphadenopathy (L) Respiratory: Present: normal breath sounds, No rales, No wheezing Cardiovascular/Chest: Present: regular rate, rhythm, no JVD, systolic murmur Abdomen: Present: Normal bowel sounds, soft, nontender, nondistended, mass palpable - questionable left lower quadrant mass Diagnostic Studies: Abnormal Lab Results 03/24/21 03/24/21 03/24/21 Range/Units 13:45 13:51 13:51 RBC 4.19 L (4.7-6.0) M/mm3 Hgb 12.3 L (13.5-18.0) gm/dL Hct 37.7 L (42.0-52.0) % Immature Gran # (Auto) 0.04 H (0.000-0.0310) K/mm3 Neutrophils % 90.6 H (42-75.0) % Lymphocytes % 3.3 L (20-51) % Neutrophils # 9.5 H (1.3-6.0) K/mm3 Lymphocytes # 0.35 L (1.5-3.5) k/mm3 Anion Gap 14.6 H (6.8-13.8) mmol/L ALT 18 L (19-67) U/L Urine WBC 5-10 H (0-5) /hpf Laboratory Results WBC 10.5 K/mm3 (4.0-10.5) 03/24/21 13:51 RBC 4.19 M/mm3 (4.7-6.0) L 03/24/21 13:51 Hgb 12.3 gm/dL (13.5-18.0) L 03/24/21 13:51 Hct 37.7 % (42.0-52.0) L 03/24/21 13:51 MCV 90.0 fl (78-100) 03/24/21 13:51 MCH 29.4 pg (27-31) 03/24/21 13:51 MCHC 32.6 g/dl (32-36) 03/24/21 13:51 RDW 13.4 % (11.5-14.0) 03/24/21 13:51 Plt Count 179 K/mm3 (150-450) 03/24/21 13:51 MPV 9.7 fl (8-11.3) 03/24/21 13:51 Immature Gran % (Auto) 0.40 % (0.001-0.429) 03/24/21 13:51 Immature Gran # (Auto) 0.04 K/mm3 (0.000-0.0310) H 03/24/21 13:51 Neutrophils % 90.6 % (42-75.0) H 03/24/21 13:51 Lymphocytes % 3.3 % (20-51) L 03/24/21 13:51 Monocytes % 5.6 % (0.0-9) 03/24/21 13:51 Eosinophils % 0.0 % (0.0-3.0) 03/24/21 13:51 Basophils % 0.1 % (0.0-1.0) 03/24/21 13:51 Nucleated RBC % 0.0 k/mm3 (0-1) 03/24/21 13:51 Neutrophils # 9.5 K/mm3 (1.3-6.0) H 03/24/21 13:51 Lymphocytes # 0.35 k/mm3 (1.5-3.5) L 03/24/21 13:51 Monocytes # 0.6 k/mm3 (0.0-1.0) 03/24/21 13:51 Eosinophils # 0.0 k/mm3 (0.0-0.7) 03/24/21 13:51 Absolute Basophils 0.0 k/mm3 (0.0-0.1) 03/24/21 13:51 Sodium 139 mmol/L (132-142) 03/24/21 13:51 Plasma Sodium 139 mmol/L (130-142) 03/24/21 13:51 Potassium 3.8 mmol/L (3.4-4.6) 03/24/21 13:51 Chloride 100 mmol/L (97-106) 03/24/21 13:51 Carbon Dioxide 28.2 mmol/L (24-32.6) 03/24/21 13:51 Anion Gap 14.6 mmol/L (6.8-13.8) H 03/24/21 13:51 BUN 13 mg/dL (6-23) 03/24/21 13:51 Creatinine 0.89 mg/dL (0.4-1.4) 03/24/21 13:51 Est GFR (Non-Af Amer) 87 mL/min (60-130) D 03/24/21 13:51 BUN/Creatinine Ratio 14.6 (9.0-21.6) 03/24/21 13:51 Random Glucose 97 mg/dL (70-110) 03/24/21 13:51 Lactic Acid, Venous 1.4 mmol/L (0.4-2.0) 03/24/21 13:51 Calcium 8.7 mg/dL (7.9-10.9) 03/24/21 13:51 Calcium Adj for Albumin 8.9 mg/dL (8.4-10.2) 03/24/21 13:51 Total Bilirubin 0.7 mg/dL (0.0-1.1) 03/24/21 13:51 AST 14 U/L (0-48) 03/24/21 13:51 ALT 18 U/L (19-67) L 03/24/21 13:51 Alkaline Phosphatase 87 U/L (50-170) 03/24/21 13:51 Troponin I Less than 0.017 ng/mL (0.00-0.10) 03/24/21 13:51 Total Protein 6.9 gm/dL (6.2-8.2) 03/24/21 13:51 Albumin 3.4 gm/dl (3.4-5.0) 03/24/21 13:51 Urine Color Yellow 03/24/21 13:45 Urine Appearance Clear (CLEAR) 03/24/21 13:45 Urine pH 7.0 pH (5.0-7.0) 03/24/21 13:45 Ur Specific [place] 1.010 SP.GR. (1.005-1.030) 03/24/21 13:45 Urine Protein Negative mg/dL (NEGATIVE) 03/24/21 13:45 Urine Glucose (UA) Negative mg/dL (NEGATIVE) 03/24/21 13:45 Urine Ketones Negative mg/dL (NEGATIVE) 03/24/21 13:45 Urine Blood Negative /ul (NEGATIVE) 03/24/21 13:45 Urine Nitrate Negative (NEGATIVE) 03/24/21 13:45 Urine Bilirubin Negative mg/dl (NEGATIVE) 03/24/21 13:45 Urine Urobilinogen Normal EU/dl (NORMAL) 03/24/21 13:45 Ur Leukocyte Esterase Negative /ul (NEGATIVE) 03/24/21 13:45 Urine RBC None seen /hpf (0-5) 03/24/21 13:45 Urine WBC 5-10 /hpf (0-5) H 03/24/21 13:45 Ur Epithelial Cells None seen /hpf (0-5) 03/24/21 13:45 Urine Bacteria Trace (NONE) 03/24/21 13:45 Urine Culture Comments No culture indicated 03/24/21 13:45 SARS-CoV-2 (PCR) Not detected (NotDetected) 03/24/21 15:45 Assessment/Plan - Narrative Narrative: Raúl was admitted for confusion/altered mental status/low blood sugar. He was given D50 and his blood sugar has come up. He still remains confused but he does have an underlying baseline mild cognitive impairment. We will continue with his D5 half NSS and feed him. We will hold his blood sugar medications for tonight. His hypoglycemia is secondary to receiving an insulin dose despite missing a meal. Possible discharge tomorrow - Assessment/Plan (1) Hypoglycemia Problem: Acute (2) Acute metabolic encephalopathy Problem: Acute (3) Diabetes Problem: Chronic Qualifiers: Diabetes mellitus type: type 2 (4) HTN (hypertension) Problem: Chronic Qualifiers: (5) CVA (cerebral vascular accident) Problem: Acute (6) Carotid artery disease Problem: Chronic Qualifiers: (7) Aortic stenosis Problem: Chronic Qualifiers: Cardiac valve disease etiology: nonrheumatic Qualified Code(s): I35.0 - Nonrheumatic aortic (valve) stenosis
[2021-03-24] MEDS ORDERED: MAGNESIUM HYDROXIDE 30 ML UDC PO PRN (17:48)
[2021-03-24] MEDS ORDERED: BISACODYL 10 MG SUPP.RECT RC PRN (17:48)
[2021-03-24] MEDS ORDERED: ACETAMINOPHEN 325 MG TABLET PO PRN (17:48)
[2021-03-24] MEDS ORDERED: TAMSULOSIN HCL 0.4 MG CAP.SR.24H PO SCH (18:00)
[2021-03-24] MEDS: METHENAMINE MANDELATE 1 GM TABLET PO SCH (20:18)
[2021-03-24] MEDS: BLOOD SUGAR DIAGNOSTIC 1 EACH STRIP MC SCH (20:28)
[2021-03-24] MEDS ORDERED: ROSUVASTATIN CALCIUM 20 MG TABLET PO SCH (21:00)
[2021-03-24] MEDS ORDERED: ATENOLOL 50 MG TABLET PO SCH (21:00)
[2021-03-25 07:15] LABS: Hematocrit 36.2 % (42.0-52.0); Hemoglobin 12.1 gm/dL (13.5-18.0); Mean Corpuscular Hemoglobin 30.1 pg (27-31); Mean Corpuscular Hgb Conc 33.4 g/dl (32-36); Mean Platelet Volume 10.1 fl (8-11.3); Neutrophil # 4.5 K/mm3 (1.3-6.0); Neutrophil % 68.7 % (42-75.0); Platelet Count 162 K/mm3 (150-450); Red Blood Count 4.02 M/mm3 (4.7-6.0); Red Cell Distribution Width 13.4 % (11.5-14.0); White Blood Count 6.5 K/mm3 (4.0-10.5)
[2021-03-25 07:19] LABS: Anion Gap 12.9 mmol/L (6.8-13.8); BUN/Creatinine Ratio 12.8 (9.0-21.6); Calcium * 8.3 mg/dL (7.9-10.9); Carbon Dioxide 24.4 mmol/L (24-32.6); Estimated Creat Clear 65.4; Potassium 4.3 mmol/L (3.4-4.6)
[2021-03-25] MEDS: BLOOD SUGAR DIAGNOSTIC 1 EACH STRIP MC SCH ×2 (07:46→12:05)
[2021-03-25 08:04] LABS: Hemoglobin A1C 7.2 % (3.80-5.60)
[2021-03-25] MEDS: METHENAMINE MANDELATE 1 GM TABLET PO SCH (08:20)
--- NOTE | 2021-03-25 08:22 | DS ---
(1) Hypoglycemia Problem: Resolved (2) Acute metabolic encephalopathy Problem: Resolved (3) Diabetes Problem: Chronic Qualifiers: Diabetes mellitus type: type 2 (4) HTN (hypertension) Problem: Chronic Qualifiers: (5) CVA (cerebral vascular accident) Diagnosis(s): history of CVA Problem: Chronic (6) Carotid artery disease Problem: Chronic Qualifiers: (7) Aortic stenosis Problem: Chronic Qualifiers: Cardiac valve disease etiology: nonrheumatic Qualified Code(s): I35.0 - Nonrheumatic aortic (valve) stenosis (8) Mild cognitive impairment Problem: Chronic (9) Acute sinusitis Diagnosis(s): maxillary and sphenoidal Problem: Acute Qualifiers: Sinusitis location: maxillary (10) Generalized weakness Diagnosis(s): deconditioning Problem: Acute Date of Discharge:: 03/25/21 Hospital Course: Raúl Dumont is an 85-year-old male with past medical history significant for coronary artery disease, CVA, mild cognitive impairment, hypertension, hyperlipidemia, diabetes mellitus type 2, aortic stenosis, carotid artery stenosis, mild cognitive impairment who was admitted on 03/24/2021 because of altered mental status and low blood sugar. The patient did not eat his breakfast but still took his insulin as usual as per son. His reported that he became confused. She tried to get him to eat or drink some juice but he would not cooperate. His blood glucose was 47 when EMS arrived. He was given an amp of D50 and his blood sugar improved to 122 . Despite the improvement in his blood glucose, he continued to be confused. He was oriented to person only in the ED. He has had confusion in the past when he has had urinary tract infections. He is now AAO x 2 ( name and place) in the floor but says he does not feel good. He does not remember at all what happened in the morning or what brought him to the hospital. I recounted to him what transpired and he said - Is that so ? His chest x-ray showed no acute cardiopulmonary findings and his EKG was sinus rhythm. His urinalysis showed no UTI and his lab work was unremarkable with a blood sugar of 97. His head CT scan showed-No acute intracranial process.Cerebral volume loss. Chronic small vessel ischemic disease.Paranasal sinus disease with small air-fluid levels of the left maxillary sinus and left sphenoid sinus. This can be seen with acute sinusitis in the appropriate clinical setting. He was admitted for observation and further management. He was continued on D5 half NSS and his blood sugar medications were put on hold. This morning his blood sugar was 199 on Accu-Chek and 206 on his BMP. He is back to his baseline mentation zhong. He did not have UTI but did have acute sinusitis on his CT scan. We will start him on oral antibiotics and nasal saline sprays. He is going to [facility] for PT/OT/ST. I have restarted him back on his Metformin and insulin glargine or Lantus at 25 units subcu daily from 45 units and will gradually increase if need be. Procedures Performed: none Results and Findings: Lab Pending Results 03/24/21 13:45: Urine Color Yellow, Urine Appearance Clear, Urine pH 7.0, Ur Specific [place] 1.010, Urine Protein Negative, Urine Glucose (UA) Negative, Urine Ketones Negative, Urine Blood Negative, Urine Nitrate Negative, Urine Bilirubin Negative, Urine Urobilinogen Normal, Ur Leukocyte Esterase Negative, Urine RBC None seen, Urine WBC 5-10 H, Ur Epithelial Cells None seen, Urine Bacteria Trace, Urine Culture Comments No culture indicated 03/24/21 13:51: WBC 10.5, RBC 4.19 L, Hgb 12.3 L, Hct 37.7 L, MCV 90.0, MCH 29.4, MCHC 32.6, RDW 13.4, Plt Count 179, MPV 9.7, Immature Gran % (Auto) 0.40, Immature Gran # (Auto) 0.04 H, Neutrophils % 90.6 H, Lymphocytes % 3.3 L, Monocytes % 5.6, Eosinophils % 0.0, Basophils % 0.1, Nucleated RBC % 0.0, Neutrophils # 9.5 H, Lymphocytes # 0.35 L, Monocytes # 0.6, Eosinophils # 0.0, Absolute Basophils 0.0 03/24/21 13:51: Sodium 139, Plasma Sodium 139, Potassium 3.8, Chloride 100, Carbon Dioxide 28.2, Anion Gap 14.6 H, BUN 13, Creatinine 0.89, Est GFR (Non-Af Amer) 87 D, BUN/Creatinine Ratio 14.6, Random Glucose 97, Calcium 8.7, Calcium Adj for Albumin 8.9, Total Bilirubin 0.7, AST 14, ALT 18 L, Alkaline Phosphatase 87, Troponin I Less than 0.017, Total Protein 6.9, Albumin 3.4 03/24/21 13:51: Lactic Acid, Venous 1.4 03/24/21 15:45: SARS-CoV-2 (PCR) Not detected 03/25/21 06:45: WBC 6.5 D, RBC 4.02 L, Hgb 12.1 L, Hct 36.2 L, MCV 90.0, MCH 30.1, MCHC 33.4, RDW 13.4, Plt Count 162, MPV 10.1, Immature Gran % (Auto) 0.30, Immature Gran # (Auto) 0.02, Neutrophils % 68.7, Lymphocytes % 19.6 L, Monocytes % 10.6 H, Eosinophils % 0.6, Basophils % 0.2, Nucleated RBC % 0.0, Neutrophils # 4.5, Lymphocytes # 1.27 L, Monocytes # 0.7, Eosinophils # 0.0, Absolute Basophils 0.0 03/25/21 06:45: Sodium 136, Plasma Sodium 138, Potassium 4.3, Chloride 103, Carbon Dioxide 24.4, Anion Gap 12.9, BUN 12, Creatinine 0.94, Est GFR (Non-Af Amer) 81, BUN/Creatinine Ratio 12.8, Random Glucose 206 H D, Calcium 8.3 03/25/21 06:45: Mean Blood Glucose 160, Hemoglobin A1c 7.2 H Discharge Location: [facility] Disposition: [facility] Condition: Stable Level of Care: SNF Discharge Activity: Activity as tolerated Discharge Diet: Consistent carbs Penitentiary Therapy: Physical Therapy, Occupation Therapy, Speech Therapy Referrals: Judi Carcamo MD [Primary Care Provider] - Additional Patient Instructions (free text): Follow-up Office appointment with Dr Carcamo on MondayMarch 31 at 9:30am. Please moniter BID Blood sugar and bring results to his appointment. Prescriptions (Any new or edited meds): Amoxicillin 500 mg PO BID #20 cap Transmission Status: Pending to [place], [place] Aspirin [Aspirin Enteric Coated] 325 mg PO DAILY #30 tablet. Transmission Status: Pending to [place], [place] Insulin Glargine,Hum.rec.anlog [Lantus] 25 unit SUBCUT QAM #3 ml Transmission Status: Pending to [place], [place] Sodium Chloride [Saline Nasal [place]] 30 ml NS BID #1 spray Transmission Status: Pending to [place], [place] Complete Home Medications List: Complete Home Medication List: Acetaminophen [Tylenol] 650 mg PO Q6H PRN #30 tab 05/15/20 blood sugar diagnostic See Rx Instructions .ROUTE .MEDSUPPLY #100 ea 06/08/20 Bisacodyl [Gentle Laxative] 10 mg RC DAILY PRN 12/02/20 bisacodyl 10 mg rectal suppository 10 mg SD DAILY PRN #12 ea 12/29/20 atorvastatin 40 mg tablet 40 mg PO HS #90 tab 12/31/20 finasteride 5 mg tablet 5 mg PO DAILY #90 tab 12/31/20 isosorbide mononitrate 60 mg tablet,extended release 24 hr 60 mg PO DAILY #90 tab 12/31/20 lisinopril 30 mg tablet 30 mg PO DAILY #90 tab 12/31/20 methenamine hippurate 1 gram tablet 1 g PO BID #180 tab 12/31/20 tamsulosin 0.4 mg capsule 0.4 mg PO 1800 #90 cap 12/31/20 metformin 1,000 mg tablet,extended release 24hr 1,000 mg PO QHS #14 tab 02/18/21 insulin syringe-needle U-100 1 mL 30 gauge x 1/2" See Rx Instructions .ROUTE .MEDSUPPLY #100 ea 03/18/21 Atenolol [Tenormin] 50 mg PO BID 03/24/21 Amoxicillin 500 mg PO BID #20 cap 03/25/21 Aspirin [Aspirin Enteric Coated] 325 mg PO DAILY #30 tablet. 03/25/21 Insulin Glargine,Hum.rec.anlog [Lantus] 25 unit SUBCUT QAM #3 ml 03/25/21 Sodium Chloride [Saline Nasal [place]] 30 ml NS BID #1 spray 03/25/21
[2021-03-25] MEDS ORDERED: ISOSORBIDE MONONITRATE 60 MG TAB.SR.24H PO SCH (09:00)
[2021-03-25] MEDS ORDERED: LISINOPRIL 10 MG TABLET PO SCH (09:00)
[2021-03-25] MEDS ORDERED: ASPIRIN 325 MG TABLET.DR PO SCH (09:00)
[2021-03-25] MEDS ORDERED: INSULIN GLARGINE,HUM.REC.ANLOG 100 UNITS/ML VIAL SC SCH (09:00)
[2021-03-25] MEDS ORDERED: FINASTERIDE 5 MG TABLET PO SCH (09:00)
[2021-03-25] MEDS ORDERED: INSULIN LISPRO 100 UNITS/ML VIAL SC ONE (12:08)
[2021-03-25 14:00] VITALS: BP 106/60
== END 2021-03-25 13:35 ==
LOC: MS 13:11 → ER 13:11 → MS 17:05
PROVIDERS: ADMIT Internal Medicine; ATTEND Internal Medicine